=== PATIENT | male | born 1980 | race Caucasian/White ===

== ENCOUNTER 2019-02-14 14:01 | Inpatient (IN) | payer BC, OTHER ==
[~2019-02-14 14:01] MED LIST: BUPIVACAINE HCL/PF 0.5% (5 MG/ML) 30 ML VIAL IJ ONE
--- NOTE | 2019-02-14 14:13 | PDOC ---
Rapid Medical Evaluation Chief Complaint: Vomiting/Diarrhea Time Seen by Provider: 02/14/19 14:10 Medical Evaluation: Allergies Allergy/AdvReac Type Severity Reaction Status Date / Time codeine Allergy Swelling Verified 08/16/15 12:59 02/14/19 14:10 I performed a brief in-person evaluation of this patient. Briefly, this is a 38-year-old male w no signifcant PMH referred from [facility] for RLQ pain since Wednesday, worsening, associated w vomiting, diarrhea, and fever (TMax 100.4) Alert, oriented, some distress secondary to pain Afebrile (took Motrin this morning) RLQ tenderness w/ guarding and rebound. I have ordered the following: Labs including CBC, CMP, lipase, PT/INR, T&S NPO CTAP non-contrast Morphine for analgesia Empiric Zosyn Patient to proceed to the ED for further evaluation 02/14/19 14:13 Discharge Disposition - Diagnosis Right lower quadrant pain - Discharge Dispostion Condition at time of disposition: Stable - Referrals - Patient Instructions - Post Discharge Activity
[2019-02-14] MEDS ORDERED: PIPERACILLIN/TAZOB 4.5 GM 4.5 GM in DEXTROSE 5%-WATER 100 ML IVPB ONE (14:14)
[2019-02-14 14:42] LABS: BASO % 0.4 % (0-2.0); EOS % 1.1 % (0-4.5); HEMATOCRIT 46.5 % (35.4-49); HEMOGLOBIN 16.3 GM/dL (11.7-16.9); LYMPH % 8.4 % (8-40); MCH 31.7 pg (25.7-33.7); MEAN CELL VOLUME 90.5 fl (80-96); MEAN PLT VOLUME 7.6 fl (7.5-11.1); MONO % 8.8 % (3.8-10.2); NEUT % 81.3 % (42.8-82.8); PLATELET COUNT 323 K/MM3 (134-434); RBC 5.14 M/mm3 (4.00-5.60); RDW 12.5 % (11.9-15.9); WHITE BLOOD COUNT 18.7 K/mm3 (4.0-10.0)
[2019-02-14 15:12] LABS: ALBUMIN 3.6 g/dl (3.4-5.0); BILIRUBIN,TOTAL 0.8 mg/dL (0.2-1); CALCIUM 9.2 mg/dL (8.5-10.1); CREATININE 1.2 mg/dL (0.55-1.3); POTASSIUM 4.4 mmol/L (3.5-5.1); TOT PROT 7.9 g/dl (6.4-8.2)
--- NOTE | 2019-02-14 15:30 | PDOC ---
Attending Attestation - Resident Resident Name: Tor Ballard (s) - ED Attending Attestation I have performed the following: I have examined & evaluated the patient, The case was reviewed & discussed with the resident, I agree w/resident's findings & plan, Exceptions are as noted - HPI HPI: 02/14/19 15:28 38 M with no PMH presents to ED with RLQ pain x 4 days. Pt states that the pain is constant. Associated with vomiting and diarrhea. He also reports fever with Tmax 100.4. Denies any previous surgical history. Denies scrotal pain. Denies dysuria/flank pain. Denies CP/SOB. - Physicial Exam PE: 02/14/19 15:29 "GENERAL: Awake, alert, and fully oriented, in no acute distress. HEAD: No signs of trauma EYES: PERRLA, EOMI, sclera anicteric, conjunctiva clear ENT: Auricles normal inspection, hearing grossly normal, nares patent, oropharynx clear without exudates. Moist mucosa NECK: Nontender, no stepoffs, Normal ROM, supple, no lymphadenopathy, JVD, or masses LUNGS: Breath sounds equal, clear to auscultation bilaterally. No wheezes, and no crackles HEART: Regular rate and rhythm, normal S1 and S2, no murmurs, rubs or gallops ABDOMEN: + RLQ TTP, + guarding and rebound EXTREMITIES: Normal range of motion, no edema. No clubbing or cyanosis. No cords, erythema, or tenderness NEUROLOGICAL: Cranial nerves II through XII intact. 5/5 strength and sensation in all extremities, Normal speech, normal gait, normal cerebellar function SKIN: Warm, Dry, normal turgor, no rashes or lesions noted. - Critical Care Time Total Critical Care Time: 60 Critical Care Statement: The care of this patient involved high complexity decision making to prevent further life threatening deterioration of the patient 's condition and/or to evaluate & treat vital organ system(s) failure or risk of failure. - Medical Decision Making 02/14/19 15:29 38 M with RLQ pain, vomiting, fever, with peritoneal signs on exam. Suspicious for acute appendicitis. - Labs - CTAP - IVF, pain control 02/14/19 15:30 CT shows perf'ed appendicitis without abscess Surgery consulted
--- NOTE | 2019-02-14 15:32 | PDOC ---
History of Present Illness - General Chief Complaint: Vomiting/Diarrhea Stated Complaint: LOWER ABD PAIN Time Seen by Provider: 02/14/19 14:10 - History of Present Illness Initial Comments: 02/14/19 15:21 Mr. Huerta is a 38 yo male w/ no significant pmh who presents for evaluation of 3 day history of RLQ abdominal pain w/ fever, nausea, diarrhea, and vomiting. Patient reports he felt unwell on Wednesday (02/11) however thought it was a stomach bug. Patient became concerned when he did not feel well enough to go to work and went to urgent care for evaluation today. Patient was told to go to ER based on laboratory evaluation. Denies any other symptoms at this time. Last meal yesterday accompanied by last vomiting episode. The patient denies chest pain, shortness of breath, headache and dizziness. Denies chills and constipation. Denies dysuria, frequency, urgency and hematuria. Past History - Past Medical History Allergies/Adverse Reactions: Allergies Allergy/AdvReac Type Severity Reaction Status Date / Time codeine Allergy Swelling Verified 08/16/15 12:59 Home Medications: Ambulatory Orders NK [No Known Home Medication] 02/14/19 - Psycho Social/Smoking Cessation Hx Smoking History: Never smoked Have you smoked in the past 12 months: No Number of Cigarettes Smoked Daily: 30 Information on smoking cessation initiated: No Hx Alcohol Use: No Drug/Substance Use Hx: No Substance Use Type: None Review of Systems - Review of Systems Comments:: 02/14/19 15:40 GENERAL/CONSTITUTIONAL: +Fever at home as described. No chills. No weakness. HEAD, EYES, EARS, NOSE AND THROAT: No change in vision. No ear pain or discharge. No sore throat. CARDIOVASCULAR: No chest pain or shortness of breath RESPIRATORY: No cough, wheezing, or hemoptysis. GASTROINTESTINAL: +Abd pain w/ N/V/D as described. No constipation. GENITOURINARY: No dysuria, frequency, or change in urination. MUSCULOSKELETAL: No joint or muscle swelling or pain. No neck or back pain. SKIN: No rash NEUROLOGIC: No headache, vertigo, loss of consciousness, or change in strength/ sensation. ENDOCRINE: No increased thirst. No abnormal weight change HEMATOLOGIC/LYMPHATIC: No anemia, easy bleeding, or history of blood clots. ALLERGIC/IMMUNOLOGIC: No hives or skin allergy. *Physical Exam - Vital Signs Last Vital Signs Temp Pulse Resp BP Pulse Ox 98.7 F 114 H 18 134/79 99 02/14/19 14:08 02/14/19 14:08 02/14/19 14:08 02/14/19 14:08 02/14/19 14:08 - Physical Exam Comments: 02/14/19 15:41 GENERAL: Awake, alert, and fully oriented, in no acute distress HEAD: No signs of trauma, normocephalic, atraumatic EYES: PERRLA, EOMI, sclera anicteric, conjunctiva clear ENT: Auricles normal inspection, hearing grossly normal, nares patent, oropharynx clear without exudates. Moist mucosa NECK: Normal ROM, supple, no lymphadenopathy, JVD, or masses LUNGS: No distress, speaks full sentences, clear to auscultation bilaterally HEART: Regular rate and rhythm, normal S1 and S2, no murmurs, rubs or gallops, peripheral pulses normal and equal bilaterally. ABDOMEN: +Diffuse abd TTP w/ guarding.. Normoactive bowel sounds. No masses EXTREMITIES: Normal inspection, Normal range of motion, no edema. No clubbing or cyanosis. NEUROLOGICAL: Cranial nerves II through XII grossly intact. Normal speech, normal gait, no focal sensorimotor deficits SKIN: Warm, Dry, normal turgor, no rashes or lesions noted. ED Treatment Course - LABORATORY CBC & Chemistry Diagram: 02/14/19 14:13 02/14/19 14:13 - ADDITIONAL ORDERS Additional order review: Laboratory Results 02/14/19 14:13 Sodium 131 L Potassium 4.4 Chloride 99 Carbon Dioxide 25 Anion Gap 7 L BUN 15.0 Creatinine 1.2 Est GFR (CKD-EPI)AfAm 89.00 Est GFR (CKD-EPI)NonAf 76.79 Random Glucose 125 H Calcium 9.2 Total Bilirubin 0.8 AST 33 ALT 83 H Alkaline Phosphatase 72 Total Protein 7.9 Albumin 3.6 Lipase 107 02/14/19 14:13 RBC 5.14 MCV 90.5 MCHC 35.0 RDW 12.5 MPV 7.6 Neutrophils % 81.3 Lymphocytes % 8.4 Monocytes % 8.8 Eosinophils % 1.1 Basophils % 0.4 Medical Decision Making - Medical Decision Making 02/14/19 15:42 Mr. Huerta is a 38 yo male w/ pmh as described who presents w/ abdominal pain. Patient evaluated w/ CTAP by RME and found to have perforated appendicitis. Patient labs sent for pre-op and patient will be admitted for further care. ABX started. Patient given tylenol for pain control at this point as he has had throat swelling 2/2 codeine in the past. 02/14/19 16:40 Patient discussed with surgery who will take to OR. Patient admitted to hospitalist for further care. 02/14/19 16:52 EKG Normal sinus rhythm. Patient en route to OR. Discharge - Discharge Information Problems reviewed: Yes Clinical Impression/Diagnosis: Appendicitis with perforation Condition: Stable - Admission Yes - Follow up/Referral - Patient Discharge Instructions - Post Discharge Activity
[2019-02-14] MEDS ORDERED: morphine SULFATE 4 MG/ML VIAL ONE (15:37)
[2019-02-14] MEDS ORDERED: PIPERACILLIN/TAZOB 4.5 GM 4.5 GM/100 ML BAG IVPB ONE ×2 (15:38→15:39)
[2019-02-14] MEDS ORDERED: ONDANSETRON 4 MG/2 ML VIAL ONE (15:38)
[2019-02-14] MEDS ORDERED: ACETAMINOPHEN 1000 MG/100 ML VIAL (NON FORMULARY) IVPB ONE (15:40)
[2019-02-14] MEDS ORDERED: SODIUM CHLORIDE 1,000 ML IV STA (15:40)
[2019-02-14] MEDS ORDERED: ACETAMINOPHEN INJECTION 100 ML IVPB ONE (15:40)
[2019-02-14] MEDS ORDERED: ONDANSETRON 4 MG/2 ML VIAL IVPUSH ONE (15:40)
[2019-02-14 16:20] LABS: INR 1.22 (0.83-1.09); PROTHROMBIN TIME (PATIENT) 14.4 SEC (9.7-13.0)
[2019-02-14 16:22] LABS: ACTIVATED PTT 30.2 SECONDS (25.2-36.5)
--- NOTE | 2019-02-14 16:39 | HP ---
CHIEF COMPLAINT: abdominal pain PCP: none HISTORY OF PRESENT ILLNESS: Patient is a 38 y/o male with no medical history who presents for abdominal pain. The pain began on Wednesday. He has never had pain like this in the past. It did not get better. he as feeling nauseous and a had a few episodes of vomiting. Last ate last night. Denies fever, chills, headache, or chest pain. ER course was notable for: (1) (2) (3) Recent Travel: PAST MEDICAL HISTORY: none PAST SURGICAL HISTORY: teeth work family hx: none Social History: Smokin pack a day Alcohol: occasionally Drugs: denies Allergies codeine Allergy (Verified 08/16/15 12:59) Swelling HOME MEDICATIONS: Home Medications Medication Instructions Recorded NK [No Known Home Medication] 02/14/19 REVIEW OF SYSTEMS CONSTITUTIONAL: Absent: fever, chills, diaphoresis, generalized weakness, malaise, loss of appetite, weight change HEENT: Absent: rhinorrhea, nasal congestion, throat pain, throat swelling, difficulty swallowing, mouth swelling, ear pain, eye pain, visual changes CARDIOVASCULAR: Absent: chest pain, syncope, palpitations, irregular heart rate, lightheadedness , peripheral edema RESPIRATORY: Absent: cough, shortness of breath, dyspnea with exertion, orthopnea, wheezing, stridor, hemoptysis GASTROINTESTINAL:abdominal pain, nausea, vomiting, diarrhea, Absent: abdominal distension, constipation, melena, hematochezia GENITOURINARY: Absent: dysuria, frequency, urgency, hesitancy, hematuria, flank pain, genital pain MUSCULOSKELETAL: Absent: myalgia, arthralgia, joint swelling, back pain, neck pain SKIN: Absent: rash, itching, pallor HEMATOLOGIC/IMMUNOLOGIC: Absent: easy bleeding, easy bruising, lymphadenopathy, frequent infections ENDOCRINE: Absent: unexplained weight gain, unexplained weight loss, heat intolerance, cold intolerance NEUROLOGIC: Absent: headache, focal weakness or paresthesias, dizziness, unsteady gait, seizure, mental status changes, bladder or bowel incontinence PSYCHIATRIC: Absent: anxiety, depression, suicidal or homicidal ideation, hallucinations. PHYSICAL EXAMINATION Vital Signs - 24 hr 02/14/19 14:08 Temperature 98.7 F Pulse Rate 114 H Respiratory 18 Rate Blood Pressure 134/79 O2 Sat by Pulse 99 Oximetry (%) GENERAL: Awake, alert, and fully oriented, in no acute distress. HEAD: Normal with no signs of trauma. EYES: Pupils equal, round and reactive to light, extraocular movements intact, EARS, NOSE, THROAT: Moist mucous membranes. LUNGS: Breath sounds equal, clear to auscultation bilaterally. No wheezes, and no crackles. No accessory muscle use. HEART: Regular rate and rhythm, normal S1 and S2 without murmur, rub or gallop. ABDOMEN: tenderness to palpation in RLQ LOWER EXTREMITIES: 2+ pulses, warm, well-perfused. No calf tenderness. No peripheral edema. SKIN: Warm, dry, normal turgor, no rashes or lesions noted, normal capillary refill. CBC, BMP 02/14/19 14:13 02/14/19 14:13 ASSESSMENT/PLAN: patient is a 38 y/o male with no history who presents with acute perforated appendicitis. #Acute perforated appendicitis - to go to surgery today with Dr. Eastman - CT Abd/Pelvis: acute perforated appendcitis, no abcess - zosyn q6h for post surgical coverage - ID consult with Eduard - pain management per anesthesia - incentive spirometer q1h - O2 as needed to keep saturation above 90% #nicotine dependence - patient denied nicotine patch #DVT ppx - SCD's FEN - NPO - LR @100 Dispo: monitor patient on med surg Visit type - Emergency Visit Emergency Visit: Yes ED Registration Date: 02/14/19 Care time: The patient presented to the Emergency Department on the above date and was hospitalized for further evaluation of their emergent condition. - New Patient This patient is new to me today: Yes Date on this admission: 02/17/19 - Critical Care Critical Care patient: No ATTENDING PHYSICIAN STATEMENT I saw and evaluated the patient. I reviewed the resident's note and discussed the case with the resident. I agree with the resident's findings and plan as documented. SUBJECTIVE: OBJECTIVE: ASSESSMENT AND PLAN:
--- NOTE | 2019-02-14 17:12 | CONSULT ---
- Consultation REQUESTING PROVIDER: CONSULT REQUEST: We have been asked to surgically evaluate this patient for abdominal pain. PCP: HISTORY OF PRESENT ILLNESS: The patient is a 38 yo male who presents to the ER with complaints of diarrhea, emesis and abdominal pain since Wednesday morning. He had one episode of non-bloody diarrhea today. No further vomiting since yesterday. Fever and chills. No dysuria. PMHx: Denies PSHx: No surgical history Home Medications Medication Instructions Recorded NK [No Known Home Medication] 02/14/19 Allergies Allergy/AdvReac Type Severity Reaction Status Date / Time codeine Allergy Swelling Verified 08/16/15 12:59 REVIEW OF SYSTEMS: CONSTITUTIONAL: Present: fever, chills CARDIOVASCULAR: Absent: chest pain, palpitations. RESPIRATORY: Absent: cough, shortness of breath. GASTROINTESTINAL: Absent: abdominal pain, nausea, vomiting, diarrhea GENITOURINARY: Absent: dysuria, hematuria MUSCULOSKELETAL: Absent: joint swelling, back pain, neck pain HEMATOLOGIC/IMMUNOLOGIC: Absent: easy bleeding, easy bruising PHYSICAL EXAM: GENERAL: Awake, alert, and fully oriented, in no acute distress. LUNGS: Clear to auscultation bilat anteriorly. HEART: Mild tachycardia and regular rhythm. ABDOMEN: Soft, tender to the RLE, guarding, no rebound, no masses. NEUROLOGICAL: Normal speech, gait not observed. PSYCH: Cooperative. Good eye contact. Appropriate mood and affect. Vital Signs Temperature 98.7 F 02/14/19 14:08 Pulse Rate 114 H 02/14/19 14:08 Respiratory Rate 18 02/14/19 14:08 Blood Pressure 134/79 02/14/19 14:08 O2 Sat by Pulse Oximetry (%) 99 02/14/19 14:08 Lab Results WBC 18.7 K/mm3 (4.0-10.0) H 02/14/19 14:13 RBC 5.14 M/mm3 (4.00-5.60) 02/14/19 14:13 Hgb 16.3 GM/dL (11.7-16.9) 02/14/19 14:13 Hct 46.5 % (35.4-49) 02/14/19 14:13 MCV 90.5 fl (80-96) 02/14/19 14:13 MCHC 35.0 g/dl (32.0-35.9) 02/14/19 14:13 RDW 12.5 % (11.9-15.9) 02/14/19 14:13 Plt Count 323 K/MM3 (134-434) 02/14/19 14:13 Sodium 131 mmol/L (136-145) L 02/14/19 14:13 Potassium 4.4 mmol/L (3.5-5.1) 02/14/19 14:13 Chloride 99 mmol/L (98-107) 02/14/19 14:13 Carbon Dioxide 25 mmol/L (21-32) 02/14/19 14:13 Anion Gap 7 MMOL/L (8-16) L 02/14/19 14:13 BUN 15.0 mg/dL (7-18) 02/14/19 14:13 Creatinine 1.2 mg/dL (0.55-1.3) 02/14/19 14:13 Random Glucose 125 mg/dL (74-106) H 02/14/19 14:13 Calcium 9.2 mg/dL (8.5-10.1) 02/14/19 14:13 INR 1.22 (0.83-1.09) H 02/14/19 15:31 CT scan: acute appendicits with perforation. No collection. A/p: 38 yo male with acute/perforated appendicits. No collection/abscess. Spoke with Dr Eastman and plan for the OR today. Laparoscopic appendectomy Npo/IV hydration Pt received IV Zosyn at 1530 Visit type - Case Type Case Type: ED Admission - Emergency Emergency Visit: Yes Care time: The patient presented to the Emergency Department on the above date and was hospitalized for further evaluation of their emergent condition. - New patient This patient is new to me today: Yes Date on this admission: 02/14/19
[2019-02-14] MEDS ORDERED: LACTATED RINGERS SOLUTION 1,000 ML/1,000 ML INFUS.BAG IV SCH (18:15)
[2019-02-14] MEDS ORDERED: BUPIVACAINE HCL/PF 0.5% (5 MG/ML) 30 ML VIAL IJ ONE (18:29)
[2019-02-14] MEDS ORDERED: KETOROLAC TROMETHAMINE 30 MG/1 ML VIAL IVPUSH PRN (18:41)
[2019-02-14] MEDS ORDERED: LACTATED RINGERS SOLUTION 1,000 ML IV SCH (18:45)
--- NOTE | 2019-02-14 18:50 | OP ---
Operative Note - Note: Operative Date: 02/14/19 Pre-Operative Diagnosis: acute appendicitis-perforated Operation: laparosopic appendectomy for perforation Surgeon: Carlos Eastman Salesperson Women'S Dresses: Shamika Rogers Specimens Removed: appendix Estimated Blood Loss (mls): 40 Drains, Volume Out (mls): 250 (roth) Fluid Volume Replaced (mls): 1,000 Operative Report Dictated: Yes
--- NOTE | 2019-02-14 18:51 | SURG ---
Surgery Terminal Makeup Operator Note Terminal Makeup Operator: Shamika Rogers PA-C Date of Service: 02/14/19 Diagnosis: acute perforated appendicitis Procedure: laparosopic appendectomy I was present for the entirety of the operative procedure. For further detail, please refer to operative report. Visit type - Case Type Case Type: ED Admission - Emergency Emergency Visit: Yes Care time: The patient presented to the Emergency Department on the above date and was hospitalized for further evaluation of their emergent condition. - New patient This patient is new to me today: No
[2019-02-14 19:01] LABS: PLATELET ESTIMATE ADEQUATE
[2019-02-14] MEDS ORDERED: PROMETHAZINE HCL 25 MG/1 ML VIAL IVPUSH PRN (19:15)
[2019-02-14] MEDS ORDERED: ONDANSETRON 4 MG/2 ML VIAL IVPUSH PRN (19:15)
[2019-02-14] MEDS: LACTATED RINGERS SOLUTION 1,000 ML IV SCH (20:50)
[2019-02-14] MEDS: PIPERACILLIN/TAZOB 3.375 GM 3.375 GM in DEXTROSE 5%-WATER - 50 ML IVPB SCH (20:55)
[2019-02-14] MEDS ORDERED: PIPERACILLIN/TAZOB 3.375 GM 3.375 GM in DEXTROSE 5%-WATER - 50 ML IVPB SCH (21:00)
[2019-02-14] MEDS: morphine SULFATE 4 MG/ML VIAL IVPUSH PRN (21:23)
[2019-02-14] MEDS ORDERED: PIPERACILLIN/TAZOBACTAM 3.375 GM VIAL IVPB ONE (21:29)
[2019-02-14] MEDS ORDERED: DEXTROSE 5%-WATER - 50 ML IVPB ONE (21:29)
[2019-02-14] MEDS: ACETAMINOPHEN 1000 MG/100 ML VIAL (NON FORMULARY) IVPB SCH (22:54)
[2019-02-14] MEDS: LACTATED RINGERS SOLUTION 1,000 ML/1,000 ML INFUS.BAG IV SCH (22:55)
[2019-02-15] MEDS ORDERED: PIPERACILLIN/TAZOBACTAM 3.375 GM VIAL IVPB ONE ×3 (01:13→18:02)
[2019-02-15] MEDS ORDERED: DEXTROSE 5%-WATER - 50 ML IVPB ONE ×3 (01:14→18:03)
[2019-02-15] MEDS: PIPERACILLIN/TAZOB 3.375 GM 3.375 GM in DEXTROSE 5%-WATER - 50 ML IVPB SCH ×3 (01:21→18:38)
[2019-02-15] MEDS: morphine SULFATE 4 MG/ML VIAL IVPUSH PRN ×4 (01:25→18:23)
[2019-02-15 02:42] VITALS: BMI 38.4
[2019-02-15] MEDS: ACETAMINOPHEN 1000 MG/100 ML VIAL (NON FORMULARY) IVPB SCH ×2 (03:50→09:36)
[2019-02-15] MEDS: KETOROLAC TROMETHAMINE 30 MG/1 ML VIAL IVPUSH PRN ×2 (06:08→18:51)
[2019-02-15] MEDS: LACTATED RINGERS SOLUTION 1,000 ML/1,000 ML INFUS.BAG IV SCH (06:48)
[2019-02-15 08:25] LABS: BASO % 0.1 % (0-2.0); HEMATOCRIT 42.1 % (35.4-49); HEMOGLOBIN 14.8 GM/dL (11.7-16.9); LYMPH % 4.8 % (8-40); MCH 31.9 pg (25.7-33.7); MCHC 35.1 g/dl (32.0-35.9); MEAN CELL VOLUME 91.1 fl (80-96); MEAN PLT VOLUME 7.7 fl (7.5-11.1); MONO % 9.3 % (3.8-10.2); NEUT % 85.8 % (42.8-82.8); PLATELET COUNT 336 K/MM3 (134-434); RBC 4.62 M/mm3 (4.00-5.60); WHITE BLOOD COUNT 15.6 K/mm3 (4.0-10.0)
--- NOTE | 2019-02-15 08:27 | PN ---
Progress Note (short form) - Note Progress Note: POD #1 laparoscopic appendectomy. Patient c/o RLQ pain. He denies any CP, SOB, Fever, chills, N/V. He is hungry and would like to eat. Vital Signs Temp 99.5 F 02/15/19 06:43 Pulse 106 H 02/15/19 06:43 Resp 20 02/15/19 06:43 BP 120/74 02/15/19 06:43 Pulse Ox 98 02/14/19 21:00 Intake & Output 02/14/19 02/14/19 02/15/19 11:59 23:59 11:59 Intake Total 1650 1150 Output Total 360 425 Balance 1290 725 Weight 238 lb Intake: IV 1600 1000 LACTATED RINGERS SOLUTION 200 1000 1,000 ml In 1,000 ml @ 100 mls/hr IV ASDIR RYAN Rx#:[id number] IVPB 50 150 Oral 0 Output: Drainage 110 25 Left Abdomen 10 25 Urine 250 400 Void 0 400 Other: Voiding Method Urinal # Unmeasured Voids Void 2 Bowel Movement No Height 5 ft 6 in Body Mass Index (BMI) 38.4 Weight Measurement Method Built in [facility] Weight Measurement Method Est/Stated by Patient CBC, BMP 02/15/19 07:20 02/15/19 07:20 PE: A&Ox3, NAD Unlabored resp on RA ABD: obese, mildly distended, with diffuse TTP, focal TTP over RLQ appropriate to status. Drain at LLQ in good position with SS d/c. dressing c/d/i with surrounding tissue intact and no tracking erythema. B/L LE compartments, soft, supple and non-tender to palpation with + DP pulses. Problem List - Problems (1) Appendicitis with perforation Assessment/Plan: POD #1 Laparoscopic appendectomy with micro perf, patient doing well. -Clear diet -OOB as tolerated up to chair for meals -maintain LAURA drain -IV ABX per ID -trend labs -d/c planning for home possibly later this week. Evaluation and plan discussed with Dr Eastman. Code(s): K35.32 - ACUTE APPENDICITIS WITH PERF AND LOC PERITONITIS, W/O ABSCS
--- NOTE | 2019-02-15 08:33 | PN ---
Progress Note (short form) - Note Progress Note: 38 yo M no significant PMH s/p laparoscopic appendectomy under GA. Patient c/o pain. Receiving analgesics per order set. Vital Signs Temperature 99.5 F 02/15/19 06:43 Pulse Rate 106 H 02/15/19 06:43 Respiratory Rate 20 02/15/19 06:43 Blood Pressure 120/74 02/15/19 06:43 O2 Sat by Pulse Oximetry (%) 98 02/14/19 21:00 Laboratory Last Values WBC 18.7 K/mm3 (4.0-10.0) H 02/14/19 14:13 RBC 5.14 M/mm3 (4.00-5.60) 02/14/19 14:13 Hgb 16.3 GM/dL (11.7-16.9) 02/14/19 14:13 Hct 46.5 % (35.4-49) 02/14/19 14:13 MCV 90.5 fl (80-96) 02/14/19 14:13 MCH 31.7 pg (25.7-33.7) 02/14/19 14:13 MCHC 35.0 g/dl (32.0-35.9) 02/14/19 14:13 RDW 12.5 % (11.9-15.9) 02/14/19 14:13 Plt Count 323 K/MM3 (134-434) 02/14/19 14:13 MPV 7.6 fl (7.5-11.1) 02/14/19 14:13 Absolute Neuts (auto) 15.2 K/mm3 (1.5-8.0) H 02/14/19 14:13 Neutrophils % 81.3 % (42.8-82.8) 02/14/19 14:13 Neutrophils % (Manual) 85.7 % (42.8-82.8) H 02/14/19 14:13 Band Neutrophils % 0.0 % 02/14/19 14:13 Lymphocytes % 8.4 % (8-40) 02/14/19 14:13 Lymphocytes % (Manual) 1.0 % (8-40) L 02/14/19 14:13 Monocytes % 8.8 % (3.8-10.2) 02/14/19 14:13 Monocytes % (Manual) 5 % (3.8-10.2) 02/14/19 14:13 Eosinophils % 1.1 % (0-4.5) 02/14/19 14:13 Eosinophils % (Manual) 2.1 % (0-4.5) 02/14/19 14:13 Basophils % 0.4 % (0-2.0) 02/14/19 14:13 Basophils % (Manual) 0.0 % (0-2.0) 02/14/19 14:13 Myelocytes % (Man) 0 % (0-2) 02/14/19 14:13 Promyelocytes % (Man) 0 % (0-2) 02/14/19 14:13 Blast Cells % (Manual) 0 % (0-0) 02/14/19 14:13 Nucleated RBC % 0 % (0-0) 02/14/19 14:13 Metamyelocytes 0 % (0-2) 02/14/19 14:13 Platelet Estimate Adequate 02/14/19 14:13 PT with INR 14.40 SEC (9.7-13.0) H 02/14/19 15:31 INR 1.22 (0.83-1.09) H 02/14/19 15:31 PTT (Actin FS) 30.2 SECONDS (25.2-36.5) 02/14/19 15:31 Sodium 131 mmol/L (136-145) L 02/14/19 14:13 Potassium 4.4 mmol/L (3.5-5.1) 02/14/19 14:13 Chloride 99 mmol/L (98-107) 02/14/19 14:13 Carbon Dioxide 25 mmol/L (21-32) 02/14/19 14:13 Anion Gap 7 MMOL/L (8-16) L 02/14/19 14:13 BUN 15.0 mg/dL (7-18) 02/14/19 14:13 Creatinine 1.2 mg/dL (0.55-1.3) 02/14/19 14:13 Est GFR (CKD-EPI)AfAm 89.00 02/14/19 14:13 Est GFR (CKD-EPI)NonAf 76.79 02/14/19 14:13 Random Glucose 125 mg/dL (74-106) H 02/14/19 14:13 Calcium 9.2 mg/dL (8.5-10.1) 02/14/19 14:13 Total Bilirubin 0.8 mg/dL (0.2-1) 02/14/19 14:13 AST 33 U/L (15-37) 02/14/19 14:13 ALT 83 U/L (13-61) H 02/14/19 14:13 Alkaline Phosphatase 72 U/L (45-117) 02/14/19 14:13 Total Protein 7.9 g/dl (6.4-8.2) 02/14/19 14:13 Albumin 3.6 g/dl (3.4-5.0) 02/14/19 14:13 Lipase 107 U/L (73-393) 02/14/19 14:13 Blood Type B POSITIVE 02/14/19 21:20 Antibody Screen Positive H 02/14/19 14:13 Prewarmed Antibody Srcn Negative 02/14/19 14:13 Antibody Identification Cold agg 02/14/19 14:13 Antigen Identification No Result Required. 02/14/19 14:13 - No complications with GA -Call with questions.
[2019-02-15 08:37] LABS: BLOOD UREA NITROGEN 15.3 mg/dL (7-18); CALCIUM 8.4 mg/dL (8.5-10.1); CREATININE 1.2 mg/dL (0.55-1.3); POTASSIUM 4.6 mmol/L (3.5-5.1)
--- NOTE | 2019-02-15 09:22 | PN ---
Progress Note, Physician Chief Complaint: s/p lap appy under general anesthesia History of Present Illness: post op day one - Current Medication List Current Medications: Active Medications Acetaminophen (Ofirmev Injection -) 1,000 mg IVPB Q6H RYAN Stop: 02/15/19 10:01 Last Admin: 02/15/19 03:50 Dose: 1,000 mg Fentanyl (Sublimaze Injection -) 50 mcg IVPUSH [id number] PRN PRN Reason: PAIN-PACU ORDER X 4 DOSES ONLY Lactated Ringer's (Lactated Ringers Solution) 1,000 mls @ 125 mls/hr IV ASDIR RYAN Last Admin: 02/14/19 20:50 Dose: Not Given Piperacillin Sod/Tazobactam (Sod 3.375 gm/ Dextrose) 50 mls @ 100 mls/hr IVPB Q8H-IV RYAN; Protocol Last Admin: 02/15/19 01:21 Dose: 100 mls/hr Lactated Ringer's (Lactated Ringers Solution) 1,000 ml in 1,000 mls @ 100 mls/ hr IV ASDIR RYAN Last Admin: 02/15/19 06:48 Dose: 100 mls/hr Ketorolac Tromethamine (Toradol Injection -) 30 mg IVPUSH Q6H PRN PRN Reason: PAIN LEVEL 1-5 Stop: 02/20/19 00:14 Last Admin: 02/15/19 06:08 Dose: 30 mg Morphine Sulfate (Morphine Sulfate) 4 mg IVPUSH Q4H PRN PRN Reason: PAIN LEVEL 6-10 Last Admin: 02/15/19 01:25 Dose: 4 mg Ondansetron HCl (Zofran Injection) 4 mg IVPUSH Q6H PRN PRN Reason: NAUSEA AND/OR VOMITING Promethazine HCl (Phenergan Injection -) 12.5 mg IVPUSH Q6H PRN PRN Reason: NAUSEA-FOR RESCUE AFTER 15 MIN - Objective Vital Signs: Vital Signs Temperature 99.5 F 02/15/19 06:43 Pulse Rate 106 H 02/15/19 06:43 Respiratory Rate 20 02/15/19 06:43 Blood Pressure 120/74 02/15/19 06:43 O2 Sat by Pulse Oximetry (%) 98 02/14/19 21:00 Constitutional: Yes: Well Nourished Cardiovascular: Yes: WNL Respiratory: Yes: WNL Gastrointestinal: Yes: WNL Labs: CBC, BMP 02/15/19 07:20 02/15/19 07:20 INR, PTT INR 1.22 (0.83-1.09) H 02/14/19 15:31 Assessment/Plan Patient complaining about pain, helped by morphine, tolerating clears, no adverse anesthetic complications. Suggest converting IV morphine to po analgesics, otherwise will sign off care at this time.
--- NOTE | 2019-02-15 12:04 | CON.ID ---
Consult Consult Specialty:: infectious diseases Referred by:: Reason for Consultation:: perforated appendix - History of Present Illness Chief Complaint: abd pain History of Present Illness: 38 y/o male with no medical history admitted with abdominal pain. The pain began on Wednesday. He has never had pain like this in the past. It did not get better. he as feeling nauseous and a had a few episodes of vomiting. . Denies fever, chills, headache, or chest pain. patient was worked up found to have perforated appendix was taken to the operating room by surgery and underwent surgery currently post op with lot of pain - History Source History Provided By: Patient Limitations to Obtaining History: No Limitations - Alcohol/Substance Use Hx Alcohol Use: No - Smoking History Smoking history: Never smoked Have you smoked in the past 12 months: No Aproximately how many cigarettes per day: 30 Home Medications - Allergies Allergies/Adverse Reactions: Allergies Allergy/AdvReac Type Severity Reaction Status Date / Time codeine Allergy Swelling Verified 08/16/15 12:59 - Home Medications Home Medications: Ambulatory Orders NK [No Known Home Medication] 02/14/19 Review of Systems - Review of Systems Constitutional: reports: No Symptoms Eyes: reports: No Symptoms HENT: reports: No Symptoms Neck: reports: No Symptoms Cardiovascular: reports: No Symptoms Respiratory: reports: No Symptoms Gastrointestinal: reports: Abdominal Pain, Nausea, Vomiting Genitourinary: reports: No Symptoms Musculoskeletal: reports: No Symptoms Integumentary: reports: No Symptoms Neurological: reports: No Symptoms Endocrine: reports: No Symptoms Hematology/Lymphatic: reports: No Symptoms Psychiatric: reports: No Symptoms Physical Exam Vital Signs: Vital Signs Temperature 99.5 F 02/15/19 06:43 Pulse Rate 106 H 02/15/19 06:43 Respiratory Rate 20 02/15/19 06:43 Blood Pressure 120/74 02/15/19 06:43 O2 Sat by Pulse Oximetry (%) 98 02/14/19 21:00 Constitutional: Yes: Well Nourished, Calm, Mild Distress HENT: Yes: Atraumatic, Normocephalic Neck: Yes: Supple, Trachea Midline Cardiovascular: Yes: Regular Rate and Rhythm Respiratory: Yes: Regular, CTA Bilaterally Gastrointestinal: Yes: Distention, Tenderness, Other (absent bowel sounds) Musculoskeletal: Yes: WNL Extremities: Yes: WNL Neurological: Yes: Alert, Oriented Psychiatric: Yes: Alert, Oriented Labs: CBC, BMP 02/15/19 07:20 02/15/19 07:20 Imaging - Results Cat Scan: Report Reviewed, Image Reviewed Assessment/Plan patient is a 38 y/o male with no history who presents with acute perforated appendicitis. Acute perforated appendicitis nicotine dependence abd pain nausea plan continue zosyn await for cx report hydration rest as per surgery
--- NOTE | 2019-02-15 12:12 | EKG ---
Test Reason : Blood Pressure : / mmHG Vent. Rate : 098 BPM Atrial Rate : 098 BPM P-R Int : 134 ms QRS Dur : 082 ms QT Int : 338 ms P-R-T Axes : 049 033 033 degrees QTc Int : 431 ms NORMAL SINUS RHYTHM NORMAL ECG NO PREVIOUS ECGS AVAILABLE Confirmed by MELVIN BARKER, KILLIAN ([id number]) on 02/15/2019 12:12:35 PM Referred By: Confirmed By:KILLIAN CHARLES MD
--- NOTE | 2019-02-15 12:19 | OP ---
DATE OF OPERATION: 02/14/2019 PREOPERATIVE DIAGNOSIS: Acute perforated appendicitis. POSTOPERATIVE DIAGNOSIS: Acute perforated gangrenous appendicitis. PROCEDURE: Laparoscopic appendectomy. SURGEON: Carlos Eastman MD TRACK VEHICLE REPAIRER: Shamika Rogers PA-C ANESTHESIA: General. OPERATIVE FINDINGS: There was acute perforated gangrenous appendicitis with fecaliths present and a small localized collection in the right lower quadrant. The rest of the findings showed marked inflammation of the terminal ileum and surrounding mesentery, and the rest of the findings were unremarkable. PROCEDURE: The patient was placed on the operating table in supine position after the induction of general anesthesia and placement of a Wellington catheter. The patient's lower abdomen was prepped with ChloraPrep and draped in sterile fashion. A timeout was taken and pneumoperitoneum was established above the umbilicus using a Veress needle to an intraabdominal pressure of 15 mmHg. A 5-mm port was placed at the umbilicus as well as a left lower quadrant 5-mm port and suprapubic 12-mm port just to the left of the midline. Laparoscopy was carried out and the previously- noted findings were observed. Using blunt dissection, the small bowel was mobilized and the appendix identified. It was grasped and, using blunt dissection, mobilized. The mesoappendix was identified and serially divided close to the base of the appendix using the LigaSure device. Once completely mobilized, a purple load 45-mm Endo MARIA E stapling device was placed across the base of the appendix and fired. The appendix was then placed in an EndoCatch along with 2 fecaliths and brought up to the abdominal wall. Copious irrigation was carried out and some of the localized fluid that was present in the right lower quadrant was sent for culture and sensitivity to the microbiology lab. Further irrigation was carried out and then the appendiceal stump was examined and found to be hemostatic. Again, copious irrigation was carried out and then a 5-mm Landry-Bravo drain was placed at the base of the cecum and into the right lower quadrant collection and brought out to the 5-mm port site in the lateral abdominal wall. Hemostasis was again verified and then the pneumoperitoneum evacuated and all ports removed under laparoscopic vision without evidence of bleeding from the port sites. The defect at the 12-mm port site was closed with a single 0 Vicryl [id number] suture and all port sites were infiltrated with 0.5% Marcaine and the skin edges closed with 4-0 Monocryl continuous subcutaneous stitch. The drain was sutured to the skin with 2-0 silk suture and a BioPatch placed around it and covered with 4 x 4 dressings and connected to bulb self-suction. The remainder of the port sites were closed with Steri-Strips and Band-Aid dressings. The Wellington catheter was then removed and the patient aroused from general anesthesia and transferred to the post-anesthesia care unit in stable condition, awake and alert. Estimated blood loss 40 mL. Replacement: Crystalloid. Drains: One 10-mm Landry-Bravo. Specimen: Appendix to Pathology. I, Carlos Eastman, was physically present in the operating room from the time the patient was placed on the operating table until he was transferred to the post-anesthesia care unit in [place]. MD DIMPLE To/[id number] MTDD
--- NOTE | 2019-02-15 16:28 | PN ---
Physical Exam: SUBJECTIVE: Patient seen and examined. Endorses severe abdominal pain, worse than at presentation. Able to urinate. Did not eat his jello. Denies flatus, BM. OBJECTIVE: Vital Signs Period Temp Pulse Resp BP Sys/Curtis Pulse Ox Last 24 Hr 98.4 F-99.5 F 85-106 12-20 120-146/66-82 96-100 GENERAL: The patient is awake, alert, in mild distress. HEAD: Normal with no signs of trauma. EYES: extraocular movements intact, sclera anicteric, conjunctiva clear. ENT: Ears normal, nares patent, moist mucous membranes. NECK: Trachea midline, full range of motion, supple. LUNGS: Breath sounds equal, clear to auscultation bilaterally, no wheezes, no crackles, no accessory muscle use. HEART: Regular rate and rhythm, S1, S2 without murmur, rub or gallop. ABDOMEN: Soft, nondistended, normoactive bowel sounds, no guarding, no rebound. Tenderness to palpation to lower abd. LAURA in RLQ with serosanguinous fluid EXTREMITIES: 2+ pulses, warm, well-perfused, no edema. NEUROLOGICAL: Normal speech, gait not observed. SKIN: Warm, dry, normal turgor, no rashes or lesions noted Laboratory Results - last 24 hr 02/14/19 02/14/19 02/14/19 14:13 14:13 15:31 WBC RBC Hgb Hct MCV MCH MCHC RDW Plt Count MPV Absolute Neuts (auto) Neutrophils % Neutrophils % (Manual) 85.7 H Band Neutrophils % 0.0 Lymphocytes % Lymphocytes % (Manual) 1.0 L Monocytes % Monocytes % (Manual) 5 Eosinophils % Eosinophils % (Manual) 2.1 Basophils % Basophils % (Manual) 0.0 Myelocytes % (Man) 0 Promyelocytes % (Man) 0 Blast Cells % (Manual) 0 Nucleated RBC % Metamyelocytes 0 Platelet Estimate Adequate PT with INR 14.40 H INR 1.22 H PTT (Actin FS) 30.2 Sodium Potassium Chloride Carbon Dioxide Anion Gap BUN Creatinine Est GFR (CKD-EPI)AfAm Est GFR (CKD-EPI)NonAf Random Glucose Calcium Blood Type B POSITIVE Antibody Screen Positive H Prewarmed Antibody Srcn Negative Antibody Identification Cold agg Antigen Identification No Result Required. 10/08/19 10/09/19 10/09/19 21:20 07:20 07:20 WBC 15.6 H RBC 4.62 Hgb 14.8 Hct 42.1 MCV 91.1 MCH 31.9 MCHC 35.1 RDW 13.0 Plt Count 336 MPV 7.7 Absolute Neuts (auto) 13.4 H Neutrophils % 85.8 H Neutrophils % (Manual) Band Neutrophils % Lymphocytes % 4.8 L D Lymphocytes % (Manual) Monocytes % 9.3 Monocytes % (Manual) Eosinophils % 0.0 D Eosinophils % (Manual) Basophils % 0.1 Basophils % (Manual) Myelocytes % (Man) Promyelocytes % (Man) Blast Cells % (Manual) Nucleated RBC % 0 Metamyelocytes Platelet Estimate PT with INR INR PTT (Actin FS) Sodium 136 Potassium 4.6 Chloride 104 Carbon Dioxide 23 Anion Gap 9 BUN 15.3 Creatinine 1.2 Est GFR (CKD-EPI)AfAm 89.00 Est GFR (CKD-EPI)NonAf 76.79 Random Glucose 111 H Calcium 8.4 L Blood Type B POSITIVE Antibody Screen Prewarmed Antibody Srcn Antibody Identification Antigen Identification Active Medications Generic Name Dose Route Start Last Admin Trade Name Freq PRN Reason Stop Dose Admin Fentanyl 50 mcg 02/14/19 19:15 Sublimaze Injection - IVPUSH [id number] PRN PAIN-PACU ORDER X 4 DOSES ONLY Lactated Ringer's 1,000 mls @ 125 mls/hr 02/14/19 19:15 02/14/19 20:50 Lactated Ringers Solution IV Not Given ASDIR RYAN Piperacillin Sod/Tazobactam 50 mls @ 100 mls/hr 02/14/19 20:00 02/15/19 09:33 Sod 3.375 gm/ Dextrose IVPB 100 mls/hr Q8H-IV RYAN Administration Protocol Lactated Ringer's 1,000 ml in 1,000 mls @ 100 mls/hr 02/14/19 22:00 02/15/19 06:48 Lactated Ringers Solution IV 100 mls/hr ASDIR RYAN Administration Ketorolac Tromethamine 30 mg 02/15/19 00:15 02/15/19 06:08 Toradol Injection - IVPUSH 02/20/19 00:14 30 mg Q6H PRN Administration PAIN LEVEL 1-5 Morphine Sulfate 4 mg 02/14/19 18:53 02/15/19 14:21 Morphine Sulfate IVPUSH 4 mg Q4H PRN Administration PAIN LEVEL 6-10 Ondansetron HCl 4 mg 02/14/19 18:44 Zofran Injection IVPUSH Q6H PRN NAUSEA AND/OR VOMITING Promethazine HCl 12.5 mg 02/14/19 19:15 Phenergan Injection - IVPUSH Q6H PRN NAUSEA-FOR RESCUE AFTER 15 MIN Vital Signs Temp 98.5 F 02/15/19 15:00 Pulse 104 H 02/15/19 15:00 Resp 20 02/15/19 15:00 BP 140/78 02/15/19 15:00 Pulse Ox 98 02/15/19 09:00 Intake & Output 02/14/19 02/15/19 02/15/19 23:59 11:59 23:59 Intake Total 1650 1150 Output Total 360 425 Balance 1290 725 Weight 107.955 kg Intake: IV 1600 1000 LACTATED RINGERS SOLUTION 200 1000 1,000 ml In 1,000 ml @ 100 mls/hr IV ASDIR RYAN Rx#:[id number] IVPB 50 150 Oral 0 Output: Drainage 110 25 Left Abdomen 10 25 Urine 250 400 Void 0 400 Other: Voiding Method Urinal Urinal # Unmeasured Voids Void 2 Bowel Movement No Height 5 ft 6 in Body Mass Index (BMI) 38.4 Weight Measurement Method Built in [facility] Weight Measurement Method Est/Stated by Patient ASSESSMENT/PLAN: 37M w/ no significant PMH presenting with severe abdominal pain, CT A/P showing perforated appendicitis. POD#1 Laparoscopic Appendectomy w/ LAURA placement(Eastman , 02/14/19) #Acute perforated appendicitis > CT Abd/Pelvis(02/14/19): acute perforated appendcitis, no abscess - POD#1 lap appey w/ LAURA drain(Jaren, 02/14/19) - monitor LAURA output - zosyn q6h for post surgical coverage - ID consult with Eduard - pain management: morphine 4mg IV q4h PRN - nausea control: zofran PRN - incentive spirometer q1h #nicotine dependence - patient denied nicotine patch #DVT ppx - SCD's FEN - CLD Dispo: monitor patient on med surg Visit type - Emergency Visit Emergency Visit: No - New Patient This patient is new to me today: No - Critical Care Critical Care patient: No ATTENDING PHYSICIAN STATEMENT I saw and evaluated the patient. I reviewed the resident's note and discussed the case with the resident. I agree with the resident's findings and plan as documented. SUBJECTIVE: OBJECTIVE: ASSESSMENT AND PLAN:
--- NOTE | 2019-02-15 16:30 | PN ---
Teaching Attending Note Name of Resident: Adrian Dela Cruz ATTENDING PHYSICIAN STATEMENT I saw and evaluated the patient. I reviewed the resident's note and discussed the case with the resident. I agree with the resident's findings and plan as documented. SUBJECTIVE: Seen and examined at bedside, pain is better but still states is 5-6/10 OBJECTIVE: Vital Signs Period Temp Pulse Resp BP Sys/Curtis Pulse Ox Last 24 Hr 98.4 F-99.5 F 85-106 12-20 120-146/66-82 96-100 PHYSICAL EXAM: Gen: NAD CVS: s1s2, RRR, unlabored Lungs: CTA b/l, unlabored Abdomen: distended, post surgical incisions c/d/i, LAURA draining serosang fluid Ext: no c/c/e Current Medications Generic Name Dose Route Start Last Admin Trade Name Freq PRN Reason Stop Dose Admin Fentanyl 50 mcg 02/14/19 19:15 Sublimaze Injection - IVPUSH [id number] PRN PAIN-PACU ORDER X 4 DOSES ONLY Lactated Ringer's 1,000 mls @ 125 mls/hr 02/14/19 19:15 02/14/19 20:50 Lactated Ringers Solution IV Not Given ASDIR RYAN Piperacillin Sod/Tazobactam 50 mls @ 100 mls/hr 02/14/19 20:00 02/15/19 09:33 Sod 3.375 gm/ Dextrose IVPB 100 mls/hr Q8H-IV RYAN Administration Protocol Lactated Ringer's 1,000 ml in 1,000 mls @ 100 mls/hr 02/14/19 22:00 02/15/19 06:48 Lactated Ringers Solution IV 100 mls/hr ASDIR RYAN Administration Ketorolac Tromethamine 30 mg 02/15/19 00:15 02/15/19 06:08 Toradol Injection - IVPUSH 02/20/19 00:14 30 mg Q6H PRN Administration PAIN LEVEL 1-5 Morphine Sulfate 4 mg 02/14/19 18:53 02/15/19 14:21 Morphine Sulfate IVPUSH 4 mg Q4H PRN Administration PAIN LEVEL 6-10 Ondansetron HCl 4 mg 02/14/19 18:44 Zofran Injection IVPUSH Q6H PRN NAUSEA AND/OR VOMITING Promethazine HCl 12.5 mg 02/14/19 19:15 Phenergan Injection - IVPUSH Q6H PRN NAUSEA-FOR RESCUE AFTER 15 MIN Laboratory Results - last 24 hr 02/14/19 02/14/19 02/14/19 14:13 14:13 21:20 WBC RBC Hgb Hct MCV MCH MCHC RDW Plt Count MPV Absolute Neuts (auto) Neutrophils % Neutrophils % (Manual) 85.7 H Band Neutrophils % 0.0 Lymphocytes % Lymphocytes % (Manual) 1.0 L Monocytes % Monocytes % (Manual) 5 Eosinophils % Eosinophils % (Manual) 2.1 Basophils % Basophils % (Manual) 0.0 Myelocytes % (Man) 0 Promyelocytes % (Man) 0 Blast Cells % (Manual) 0 Nucleated RBC % Metamyelocytes 0 Platelet Estimate Adequate Sodium Potassium Chloride Carbon Dioxide Anion Gap BUN Creatinine Est GFR (CKD-EPI)AfAm Est GFR (CKD-EPI)NonAf Random Glucose Calcium Blood Type B POSITIVE B POSITIVE Antibody Screen Positive H Prewarmed Antibody Srcn Negative Antibody Identification Cold agg Antigen Identification No Result Required. 02/15/19 02/15/19 07:20 07:20 WBC 15.6 H RBC 4.62 Hgb 14.8 Hct 42.1 MCV 91.1 MCH 31.9 MCHC 35.1 RDW 13.0 Plt Count 336 MPV 7.7 Absolute Neuts (auto) 13.4 H Neutrophils % 85.8 H Neutrophils % (Manual) Band Neutrophils % Lymphocytes % 4.8 L D Lymphocytes % (Manual) Monocytes % 9.3 Monocytes % (Manual) Eosinophils % 0.0 D Eosinophils % (Manual) Basophils % 0.1 Basophils % (Manual) Myelocytes % (Man) Promyelocytes % (Man) Blast Cells % (Manual) Nucleated RBC % 0 Metamyelocytes Platelet Estimate Sodium 136 Potassium 4.6 Chloride 104 Carbon Dioxide 23 Anion Gap 9 BUN 15.3 Creatinine 1.2 Est GFR (CKD-EPI)AfAm 89.00 Est GFR (CKD-EPI)NonAf 76.79 Random Glucose 111 H Calcium 8.4 L Blood Type Antibody Screen Prewarmed Antibody Srcn Antibody Identification Antigen Identification Microbiology 02/14/19 19:17 Gram Stain - Final Peritoneal Fluid ASSESSMENT: Acute perforated appendicitis PLAN: -POD #2 lap appendectomy -LAURA drain mngmt per surgery -follow-up cultures -maintain on zosyn -pain control -bowel regimen -incentive spirometer encouraged -ID and surgery f/u appreciated
[2019-02-15] MEDS: ONDANSETRON 4 MG/2 ML VIAL IVPUSH PRN (18:24)
[2019-02-15] MEDS ORDERED: ACETAMINOPHEN 325 MG TABLET (FP) PO PRN (18:24)
[2019-02-15] MEDS: LACTATED RINGERS SOLUTION 1,000 ML IV SCH (18:25)
[2019-02-15] MEDS ORDERED: ACETAMINOPHEN 325 MG TABLET (FP) ONE (18:35)
[2019-02-15] MEDS ORDERED: INSULIN (NOVOLOG) ASPART 100 UNITS/ML 10ML VIAL ONE (18:58)
[2019-02-16] MEDS ORDERED: DEXTROSE 5%-WATER - 50 ML IVPB ONE ×3 (01:24→17:11)
[2019-02-16] MEDS ORDERED: PIPERACILLIN/TAZOBACTAM 3.375 GM VIAL IVPB ONE ×3 (01:24→17:11)
[2019-02-16] MEDS: morphine SULFATE 4 MG/ML VIAL IVPUSH PRN (01:42)
[2019-02-16] MEDS: PIPERACILLIN/TAZOB 3.375 GM 3.375 GM in DEXTROSE 5%-WATER - 50 ML IVPB SCH ×3 (01:42→17:36)
[2019-02-16] MEDS: LACTATED RINGERS SOLUTION 1,000 ML IV SCH ×2 (01:42→12:20)
[2019-02-16] MEDS: ONDANSETRON 4 MG/2 ML VIAL IVPUSH PRN ×3 (01:43→14:02)
[2019-02-16] MEDS: KETOROLAC TROMETHAMINE 30 MG/1 ML VIAL IVPUSH PRN ×3 (04:52→17:53)
--- NOTE | 2019-02-16 08:48 | PN ---
Progress Note (short form) - Note Progress Note: POD #2, s/p laparoscopic appendectomy for perforated appendix Pt seen and examined. Continues to have some abdominal pain, mainly in his RLQ. Tolerating clears. Has been oob to restroom. Reports one episode of perfuse diarrhea this AM. Voiding without issue. Denies n/v, cp/sob. Vital Signs Temp 97.9 F 02/16/19 06:00 Pulse 96 H 02/16/19 06:00 Resp 20 02/16/19 06:00 BP 134/69 02/16/19 06:00 Pulse Ox 98 02/15/19 09:00 Intake & Output 02/15/19 02/15/19 02/16/19 11:59 23:59 11:59 Intake Total 0559 812 0213 Output Total 425 330 Balance 044 687 1578 Intake: IV 9087 188 9189 LACTATED RINGERS SOLUTION 1000 1000 1,000 ml In 1,000 ml @ 100 mls/hr IV ASDIR RYAN Rx#:[id number] Lactated Ringers Solution 800 1,000 ml @ 125 mls/hr IV ASDIR RYAN Rx#: [id number] IVPB 150 Output: Drainage 25 30 Left Abdomen 25 30 Urine 400 300 Void 400 300 Other: Voiding Method Urinal Urinal # Unmeasured Voids Void 2 Bowel Movement No Weight Measurement Method Standing Scale CBC, BMP 02/15/19 07:20 02/15/19 07:20 PE: A&Ox3, NAD Unlabored resp on RA ABD: obese, moderately distended, diffuse TTP, focal TTP over RLQ appropriate to status. Drain at LLQ with seropurulent drainage in reservoir (tubing stripped and drain dressing changed). A/P: 38 y/o M w/ no significant PMHx a/w abdominal pain, found to have acute appendicitis/perforated appendix, now POD 2, s/p Laparoscopic appendectomy. Febrile to 103F yesterday evening, tachy to 1teens, normotensive Exam stable -Continue Clear diet -OOB as tolerated up to chair for meals -Trend fever curve -maintain LAURA drain, monitor and record output, change surrounding dressing prn -Probiotics added -IV ABX per ID -trend labs -No plan for d/c yet d/w attending Dr Eastman
[2019-02-16] MEDS: LACTOBACILLUS ACIDOPHILUS 1 TABLET PO SCH (10:46)
[2019-02-16] MEDS: LACTATED RINGERS SOLUTION 1,000 ML/1,000 ML INFUS.BAG IV SCH ×2 (12:17→13:00)
--- NOTE | 2019-02-16 12:31 | PN ---
Progress Note, Physician History of Present Illness: doing better than yesterday on liquids peritoneal cx result noted awaiting for identification of the bacteria - Current Medication List Current Medications: Active Medications Acetaminophen (Tylenol -) 650 mg PO Q6H PRN PRN Reason: PAIN LEVEL 6-10 Fentanyl (Sublimaze Injection -) 50 mcg IVPUSH [id number] PRN PRN Reason: PAIN-PACU ORDER X 4 DOSES ONLY Lactated Ringer's (Lactated Ringers Solution) 1,000 mls @ 125 mls/hr IV ASDIR [facility] Last Admin: 02/16/19 12:20 Dose: 125 mls/hr Piperacillin Sod/Tazobactam (Sod 3.375 gm/ Dextrose) 50 mls @ 100 mls/hr IVPB Q8H-IV [facility]; Protocol Last Admin: 02/16/19 10:47 Dose: 100 mls/hr Lactated Ringer's (Lactated Ringers Solution) 1,000 ml in 1,000 mls @ 100 mls/ hr IV ASDIR [facility] Last Admin: 02/16/19 12:17 Dose: Not Given Ketorolac Tromethamine (Toradol Injection -) 30 mg IVPUSH Q6H PRN PRN Reason: PAIN LEVEL 1-5 Stop: 02/20/19 00:14 Last Admin: 02/16/19 11:07 Dose: 30 mg Lactobacillus Acidophilus (Bacid -) 1 tab PO DAILY [facility] Last Admin: 02/16/19 10:46 Dose: 1 tab Morphine Sulfate (Morphine Sulfate) 4 mg IVPUSH Q4H PRN PRN Reason: PAIN LEVEL 6-10 Last Admin: 02/16/19 01:42 Dose: 4 mg Ondansetron HCl (Zofran Injection) 4 mg IVPUSH Q6H PRN PRN Reason: NAUSEA AND/OR VOMITING Last Admin: 02/16/19 08:52 Dose: 4 mg Promethazine HCl (Phenergan Injection -) 12.5 mg IVPUSH Q6H PRN PRN Reason: NAUSEA-FOR RESCUE AFTER 15 MIN - Objective Vital Signs: Vital Signs Temperature 97.9 F 02/16/19 06:00 Pulse Rate 96 H 02/16/19 06:00 Respiratory Rate 20 02/16/19 06:00 Blood Pressure 134/69 02/16/19 06:00 O2 Sat by Pulse Oximetry (%) 98 02/15/19 09:00 Constitutional: Yes: Calm, Mild Distress Cardiovascular: Yes: Regular Rate and Rhythm Respiratory: Yes: Regular, CTA Bilaterally Gastrointestinal: Yes: Soft, Tenderness, Other (drain in place,draining) Musculoskeletal: Yes: WNL Extremities: Yes: WNL Wound/Incision: Yes: Clean/Dry Neurological: Yes: Alert, Oriented Psychiatric: Yes: Alert, Oriented Labs: CBC, BMP 02/15/19 07:20 02/15/19 07:20 INR, PTT INR 1.22 (0.83-1.09) H 02/14/19 15:31 Assessment/Plan patient is a 38 y/o male with no history who presents with acute perforated appendicitis. Acute perforated appendicitis nicotine dependence abd pain nausea plan continue zosyn await for cx report hydration rest as per surgery
[2019-02-16] MEDS ORDERED: FLU VACCINE QUAD 60 MCG/0.5 ML (MDV 19-20) IM ONE (13:26)
[2019-02-16 15:21] LABS: BASO % 0.3 % (0-2.0); EOS % 0.6 % (0-4.5); HEMATOCRIT 42.2 % (35.4-49); HEMOGLOBIN 14.2 GM/dL (11.7-16.9); LYMPH % 5.7 % (8-40); MCH 31.1 pg (25.7-33.7); MCHC 33.7 g/dl (32.0-35.9); MEAN CELL VOLUME 92.4 fl (80-96); MEAN PLT VOLUME 7.8 fl (7.5-11.1); MONO % 10.3 % (3.8-10.2); NEUT % 83.1 % (42.8-82.8); PLATELET COUNT 362 K/MM3 (134-434); RBC 4.57 M/mm3 (4.00-5.60); RDW 12.9 % (11.9-15.9); WHITE BLOOD COUNT 16.7 K/mm3 (4.0-10.0)
[2019-02-16 15:49] LABS: BLOOD UREA NITROGEN 16.8 mg/dL (7-18); CALCIUM 8.7 mg/dL (8.5-10.1); MAGNESIUM 2.3 mg/dL (1.8-2.4); PHOSPHOROUS 2.7 mg/dL (2.5-4.9); POTASSIUM 4.3 mmol/L (3.5-5.1)
--- NOTE | 2019-02-16 17:46 | PN ---
Teaching Attending Note Name of Resident: Adrian Dela Cruz ATTENDING PHYSICIAN STATEMENT I saw and evaluated the patient. I reviewed the resident's note and discussed the case with the resident. I agree with the resident's findings and plan as documented with exceptions below. SUBJECTIVE: patient seen and examined. abdominal pain improved. passing gas, tolerating clears OBJECTIVE: Vital Signs Period Temp Pulse Resp BP Sys/Curtis Pulse Ox Last 24 Hr 97.9 F-103 F 90-111 17-20 105-135/66-86 Intake & Output 02/13/19 02/14/19 02/15/19 02/16/19 23:59 23:59 23:59 23:59 Intake Total 1650 1950 1000 Output Total 360 755 640 Balance 1290 1195 360 Weight 238 lb General: sitting in bed, no acute distress Abdomen:Soft, tenderness in lower quadrants, More in RLQ, LLQ LAURA drain present, no voluntary or involuntary guarding or rigidity, pos bowel sounds Extremities: no edema Home Medications Medication Instructions Recorded NK [No Known Home Medication] 02/14/19 Active Medications Acetaminophen (Tylenol -) 650 mg PO Q6H PRN PRN Reason: PAIN LEVEL 6-10 Fentanyl (Sublimaze Injection -) 50 mcg IVPUSH [id number] PRN PRN Reason: PAIN-PACU ORDER X 4 DOSES ONLY Piperacillin Sod/Tazobactam (Sod 3.375 gm/ Dextrose) 50 mls @ 100 mls/hr IVPB Q8H-IV RYAN; Protocol Last Admin: 02/16/19 17:36 Dose: Not Given Lactated Ringer's (Lactated Ringers Solution) 1,000 ml in 1,000 mls @ 100 mls/ hr IV ASDIR [facility] Last Admin: 02/16/19 12:17 Dose: Not Given Ketorolac Tromethamine (Toradol Injection -) 30 mg IVPUSH Q6H PRN PRN Reason: PAIN LEVEL 1-5 Stop: 02/20/19 00:14 Last Admin: 02/16/19 11:07 Dose: 30 mg Lactobacillus Acidophilus (Bacid -) 1 tab PO DAILY [facility] Last Admin: 02/16/19 10:46 Dose: 1 tab Morphine Sulfate (Morphine Sulfate) 4 mg IVPUSH Q4H PRN PRN Reason: PAIN LEVEL 6-10 Last Admin: 02/16/19 01:42 Dose: 4 mg Ondansetron HCl (Zofran Injection) 4 mg IVPUSH Q6H PRN PRN Reason: NAUSEA AND/OR VOMITING Last Admin: 02/16/19 14:02 Dose: 4 mg Promethazine HCl (Phenergan Injection -) 12.5 mg IVPUSH Q6H PRN PRN Reason: NAUSEA-FOR RESCUE AFTER 15 MIN Laboratory Results - last 24 hr 02/16/19 02/16/19 14:17 14:17 WBC 16.7 H RBC 4.57 Hgb 14.2 Hct 42.2 MCV 92.4 MCH 31.1 MCHC 33.7 RDW 12.9 Plt Count 362 MPV 7.8 Absolute Neuts (auto) 13.9 H Neutrophils % 83.1 H Lymphocytes % 5.7 L Monocytes % 10.3 H Eosinophils % 0.6 D Basophils % 0.3 Nucleated RBC % 0 Sodium 134 L Potassium 4.3 Chloride 103 Carbon Dioxide 24 Anion Gap 7 L BUN 16.8 Creatinine 1.0 Est GFR (CKD-EPI)AfAm 110.94 Est GFR (CKD-EPI)NonAf 95.72 Random Glucose 98 Calcium 8.7 Phosphorus 2.7 Magnesium 2.3 ASSESSMENT AND PLAN: 38 yom with Acute perforated appendicitis -Acute perforated appendicitis s/p Severiano Appy drain -Sepsis Plan: Fevers overnight, WBC noted. Surgery input noted. PO clears for now and serial abdominal exams. Encourage ambulation, Incentive spirometry. Zosyn per ID. Pain control [id number] dispo pending clinical improvement.
--- NOTE | 2019-02-16 18:00 | PATH ---
Surgical Pathology Report Patient Name: DEVON PERSON Med. Rec. #: [id number] /Age/Gender: 1980 (Age: 38) / M Account: [id number] Location: [facility] MED/SURG Taken: 02/14/2019 Received: 02/15/2019 Reported: 02/16/2019 Physicians: Carlos Eastman MD Specimen(s) Received APPENDIX, PERFORATED Clinical History Lower abdominal pain, perforated appendicitis Final Diagnosis APPENDIX, PERFORATED, LAPAROSCOPIC APPENDECTOMY: MARKEDLY DISRUPTED APPENDIX WITH ACUTE GANGRENOUS APPENDICITIS, PERIAPPENDICITIS, AND ACUTE SEROSITIS CONSISTENT WITH CLINICAL PERFORATION. Electronically Signed Masha Hanson M.D. Gross Description Received in formalin, labeled "appendix," is a markedly disrupted soft tissue consistent with portions of gangrenous appendix ranging in size from 3-4 cm. in maximum dimension. The outer surface is brown-thomas, hemorrhagic, necrotic, and shows abundant yellow exudate. The smaller fragment show stapled surgical margin and 1 cm in length distal portion of the appendix. The wall of the appendix averages 0.1-0.2 cm in thickness and lumen varies from 0.1 to 0.5 cm. Card Table Attendant sections are submitted in one cassette. TITO/02/15/2019 caro/02/15/2019
[2019-02-16] MEDS: ACETAMINOPHEN 325 MG TABLET (FP) PO PRN (20:18)
--- NOTE | 2019-02-16 20:48 | PN ---
Physical Exam: SUBJECTIVE: Patient seen and examined. Abdominal pain improved. Had multiple episodes of diarrhea. Endorses appetite. IS ~250cc. Ambulating to restroom OBJECTIVE: Vital Signs Period Temp Pulse Resp BP Sys/Curtis Pulse Ox Last 24 Hr 97.7 F-98.5 F 96-111 20-22 105-141/66-86 98 GENERAL: The patient is awake, alert, in no acute distress. HEAD: Normal with no signs of trauma. EYES: extraocular movements intact, sclera anicteric, conjunctiva clear. ENT: Ears normal, nares patent, moist mucous membranes. NECK: Trachea midline, full range of motion, supple. LUNGS: Breath sounds equal, clear to auscultation bilaterally, no wheezes, no crackles, no accessory muscle use. HEART: Regular rate and rhythm, S1, S2 without murmur, rub or gallop. ABDOMEN: Soft, nondistended, normoactive bowel sounds, no guarding, no rebound. Tenderness to palpation to lower abd. LAURA in RLQ with serosanguinous fluid EXTREMITIES: 2+ pulses, warm, well-perfused, no edema. NEUROLOGICAL: Normal speech, gait not observed. SKIN: Warm, dry, normal turgor, no rashes or lesions noted Laboratory Results - last 24 hr 02/16/19 02/16/19 14:17 14:17 WBC 16.7 H RBC 4.57 Hgb 14.2 Hct 42.2 MCV 92.4 MCH 31.1 MCHC 33.7 RDW 12.9 Plt Count 362 MPV 7.8 Absolute Neuts (auto) 13.9 H Neutrophils % 83.1 H Lymphocytes % 5.7 L Monocytes % 10.3 H Eosinophils % 0.6 D Basophils % 0.3 Nucleated RBC % 0 Sodium 134 L Potassium 4.3 Chloride 103 Carbon Dioxide 24 Anion Gap 7 L BUN 16.8 Creatinine 1.0 Est GFR (CKD-EPI)AfAm 110.94 Est GFR (CKD-EPI)NonAf 95.72 Random Glucose 98 Calcium 8.7 Phosphorus 2.7 Magnesium 2.3 Active Medications Generic Name Dose Route Start Last Admin Trade Name Freq PRN Reason Stop Dose Admin Acetaminophen 650 mg 02/15/19 19:46 02/16/19 20:18 Tylenol - PO 650 mg Q6H PRN Administration PAIN LEVEL 6-10 Fentanyl 50 mcg 02/14/19 19:15 Sublimaze Injection - IVPUSH [id number] PRN PAIN-PACU ORDER X 4 DOSES ONLY Piperacillin Sod/Tazobactam 50 mls @ 100 mls/hr 02/14/19 20:00 02/16/19 17:36 Sod 3.375 gm/ Dextrose IVPB Not Given Q8H-IV RYAN Protocol Lactated Ringer's 1,000 ml in 1,000 mls @ 100 mls/hr 02/14/19 22:00 02/16/19 13:00 Lactated Ringers Solution IV 100 mls/hr ASDIR RYAN Administration Ketorolac Tromethamine 30 mg 02/15/19 00:15 02/16/19 17:53 Toradol Injection - IVPUSH 02/20/19 00:14 30 mg Q6H PRN Administration PAIN LEVEL 1-5 Lactobacillus Acidophilus 1 tab 02/16/19 10:00 02/16/19 10:46 Bacid - PO 1 tab DAILY RYAN Administration Morphine Sulfate 4 mg 02/14/19 18:53 02/16/19 01:42 Morphine Sulfate IVPUSH 4 mg Q4H PRN Administration PAIN LEVEL 6-10 Ondansetron HCl 4 mg 02/16/19 13:37 02/16/19 14:02 Zofran Injection IVPUSH 4 mg Q6H PRN Administration NAUSEA AND/OR VOMITING Prochlorperazine Edisylate 10 mg 02/16/19 19:55 Compazine Injection - IVPB Q4H PRN NAUSEA AND/OR VOMITING Promethazine HCl 12.5 mg 02/14/19 19:15 Phenergan Injection - IVPUSH Q6H PRN NAUSEA-FOR RESCUE AFTER 15 MIN ASSESSMENT/PLAN: 37M w/ no significant PMH presenting with severe abdominal pain, CT A/P showing perforated appendicitis. POD#2 Laparoscopic Appendectomy w/ LAURA placement([facility] , 02/14/19) #Acute perforated appendicitis > CT Abd/Pelvis(02/14/19): acute perforated appendcitis, no abscess - POD#2 lap appey w/ LAURA drain([facility], 02/14/19) - monitor LAURA output - zosyn q6h for post surgical coverage - ID consult with Eduard - pain management: morphine 4mg IV q4h PRN - nausea control: zofran PRN, compazine PRN - incentive spirometer q1h - probiotics added #nicotine dependence - patient denied nicotine patch #DVT ppx - SCD's FEN - CLD Dispo: monitor patient on med surg Visit type - Emergency Visit Emergency Visit: No - New Patient This patient is new to me today: No - Critical Care Critical Care patient: No ATTENDING PHYSICIAN STATEMENT I saw and evaluated the patient. I reviewed the resident's note and discussed the case with the resident. I agree with the resident's findings and plan as documented. SUBJECTIVE: OBJECTIVE: ASSESSMENT AND PLAN:
[2019-02-16] MEDS: PROCHLORPERAZINE INJECTION 10 MG/2 ML VIAL IVPB PRN (21:33)
[2019-02-17] MEDS: KETOROLAC TROMETHAMINE 30 MG/1 ML VIAL IVPUSH PRN ×4 (01:01→18:21)
[2019-02-17] MEDS ORDERED: PIPERACILLIN/TAZOBACTAM 3.375 GM VIAL IVPB ONE ×3 (01:15→18:06)
[2019-02-17] MEDS ORDERED: DEXTROSE 5%-WATER - 50 ML IVPB ONE ×3 (01:15→18:07)
[2019-02-17] MEDS: PIPERACILLIN/TAZOB 3.375 GM 3.375 GM in DEXTROSE 5%-WATER - 50 ML IVPB SCH ×3 (01:40→18:11)
[2019-02-17] MEDS: PROCHLORPERAZINE INJECTION 10 MG/2 ML VIAL IVPB PRN (02:48)
[2019-02-17] MEDS ORDERED: PT OWN MED DRAWER 7, Y5N ONE (03:51)
[2019-02-17] MEDS: ONDANSETRON 4 MG/2 ML VIAL IVPUSH PRN ×2 (05:27→18:21)
[2019-02-17] MEDS ORDERED: MAG HYDROX/AL HYDROX/SIMETH 30 ML UNIT-DOSE CUP PO PRN (08:16)
[2019-02-17 08:18] LABS: BASO % 0.2 % (0-2.0); EOS % 0.8 % (0-4.5); HEMATOCRIT 40.8 % (35.4-49); HEMOGLOBIN 14.1 GM/dL (11.7-16.9); MCH 31.5 pg (25.7-33.7); MCHC 34.4 g/dl (32.0-35.9); MEAN CELL VOLUME 91.5 fl (80-96); MEAN PLT VOLUME 7.3 fl (7.5-11.1); MONO % 9.5 % (3.8-10.2); NEUT % 82.5 % (42.8-82.8); PLATELET COUNT 408 K/MM3 (134-434); RBC 4.46 M/mm3 (4.00-5.60); WHITE BLOOD COUNT 15.7 K/mm3 (4.0-10.0)
[2019-02-17] MEDS: LACTOBACILLUS ACIDOPHILUS 1 TABLET PO SCH (10:28)
--- NOTE | 2019-02-17 11:40 | PN ---
Progress Note, Physician History of Present Illness: improving wbc trending down cdiff negative - Current Medication List Current Medications: Active Medications Acetaminophen (Tylenol -) 650 mg PO Q6H PRN PRN Reason: PAIN LEVEL 6-10 Last Admin: 02/16/19 20:18 Dose: 650 mg Al Hydroxide/Mg Hydroxide (Mylanta Oral Suspension -) 30 ml PO Q6H PRN PRN Reason: DYSPEPSIA Fentanyl (Sublimaze Injection -) 50 mcg IVPUSH [id number] PRN PRN Reason: PAIN-PACU ORDER X 4 DOSES ONLY Piperacillin Sod/Tazobactam (Sod 3.375 gm/ Dextrose) 50 mls @ 100 mls/hr IVPB Q8H-IV RYAN; Protocol Last Admin: 02/17/19 10:28 Dose: 100 mls/hr Lactated Ringer's (Lactated Ringers Solution) 1,000 ml in 1,000 mls @ 100 mls/ hr IV ASDIR RYAN Last Admin: 02/16/19 13:00 Dose: 100 mls/hr Ketorolac Tromethamine (Toradol Injection -) 30 mg IVPUSH Q6H PRN PRN Reason: PAIN LEVEL 1-5 Stop: 02/20/19 00:14 Last Admin: 02/17/19 06:51 Dose: 30 mg Lactobacillus Acidophilus (Bacid -) 1 tab PO DAILY [facility] Last Admin: 02/17/19 10:28 Dose: 1 tab Morphine Sulfate (Morphine Sulfate) 4 mg IVPUSH Q4H PRN PRN Reason: PAIN LEVEL 6-10 Last Admin: 02/16/19 01:42 Dose: 4 mg Ondansetron HCl (Zofran Injection) 4 mg IVPUSH Q6H PRN PRN Reason: NAUSEA AND/OR VOMITING Last Admin: 02/17/19 05:27 Dose: 4 mg Prochlorperazine Edisylate (Compazine Injection -) 10 mg IVPB Q4H PRN PRN Reason: NAUSEA AND/OR VOMITING Last Admin: 02/17/19 02:48 Dose: 10 mg Promethazine HCl (Phenergan Injection -) 12.5 mg IVPUSH Q6H PRN PRN Reason: NAUSEA-FOR RESCUE AFTER 15 MIN - Objective Vital Signs: Vital Signs Temperature 98.2 F 02/17/19 05:00 Pulse Rate 88 02/17/19 05:00 Respiratory Rate 20 02/17/19 05:00 Blood Pressure 127/88 02/17/19 05:00 O2 Sat by Pulse Oximetry (%) 98 02/16/19 21:00 Constitutional: Yes: Calm, Mild Distress Cardiovascular: Yes: S1, S2 Respiratory: Yes: Regular, CTA Bilaterally Gastrointestinal: Yes: Soft, Other Musculoskeletal: Yes: WNL Extremities: Yes: WNL Neurological: Yes: Alert, Oriented Psychiatric: Yes: Alert, Oriented Labs: CBC, BMP 02/17/19 07:40 02/16/19 14:17 INR, PTT INR 1.22 (0.83-1.09) H 02/14/19 15:31 Assessment/Plan patient is a 38 y/o male with no history who presents with acute perforated appendicitis. Acute perforated appendicitis nicotine dependence abd pain nausea plan continue zosyn await for cx report hydration rest as per surgery
--- NOTE | 2019-02-17 13:29 | PN ---
Progress Note (short form) - Note Progress Note: 38yo M s/p lap appy for perforated appendicitis. Pt seen and examined at bedside. Pt complains of mild abd pain. Pt denies fever, chills, n/v. Pt tolerating clears and ambulating well. Last Vital Signs Temp Pulse Resp BP Pulse Ox 98.2 F 88 20 127/88 98 02/17/19 05:00 02/17/19 05:00 02/17/19 05:00 02/17/19 05:00 02/16/19 21:00 CBC, BMP 02/17/19 07:40 02/16/19 14:17 PE: Gen: a&O X3 Resp: breathing comfortably Abd: soft, nondistended, mild abd tenderness, drain in place with serous/cloudy drainage. Ext: no edema Problem List - Problems (1) Appendicitis with perforation Assessment/Plan: Plan - will adv to regular diet. -will keep drain in for now reevaluate tomorrow. -encourage oob/ambulate -abx as per ID Case seen and discussed with Dr. Eastman who agrees with plan Code(s): K35.32 - ACUTE APPENDICITIS WITH PERF AND LOC PERITONITIS, W/O ABSCS
--- NOTE | 2019-02-17 15:16 | PN ---
Teaching Attending Note Name of Resident: Adrian Dela Cruz ATTENDING PHYSICIAN STATEMENT I saw and evaluated the patient. I reviewed the resident's note and discussed the case with the resident. I agree with the resident's findings and plan as documented with exceptions below. SUBJECTIVE: Patient seen and examined, abdominal pain improved, tolerating diet well. Ambulating. However, overnight nausea, currently better. OBJECTIVE: Vital Signs Period Temp Pulse Resp BP Sys/Curtis Pulse Ox Last 24 Hr 97.7 F-98.5 F 88-111 20-22 127-141/77-88 98 Intake & Output 02/14/19 02/15/19 02/16/19 02/17/19 23:59 23:59 23:59 23:59 Intake Total 1650 1950 2400 1850 Output Total 285 796 8196 50 Balance 1290 1195 1360 1800 Weight 238 lb General: lying in bed in no acute distress Abdomen;Soft, obese, improved tenderness in lower quadrant, most in RLQ, LLQ LAURA drain, pos bowel sounds Extremities: no edema Active Medications Acetaminophen (Tylenol -) 650 mg PO Q6H PRN PRN Reason: PAIN LEVEL 6-10 Last Admin: 02/16/19 20:18 Dose: 650 mg Al Hydroxide/Mg Hydroxide (Mylanta Oral Suspension -) 30 ml PO Q6H PRN PRN Reason: DYSPEPSIA Last Admin: 02/17/19 12:51 Dose: 30 ml Fentanyl (Sublimaze Injection -) 50 mcg IVPUSH [id number] PRN PRN Reason: PAIN-PACU ORDER X 4 DOSES ONLY Piperacillin Sod/Tazobactam (Sod 3.375 gm/ Dextrose) 50 mls @ 100 mls/hr IVPB Q8H-IV RYAN; Protocol Last Admin: 02/17/19 10:28 Dose: 100 mls/hr Lactated Ringer's (Lactated Ringers Solution) 1,000 ml in 1,000 mls @ 100 mls/ hr IV ASDIR RYAN Last Admin: 02/16/19 13:00 Dose: 100 mls/hr Ketorolac Tromethamine (Toradol Injection -) 30 mg IVPUSH Q6H PRN PRN Reason: PAIN LEVEL 1-5 Stop: 02/20/19 00:14 Last Admin: 02/17/19 12:44 Dose: 30 mg Lactobacillus Acidophilus (Bacid -) 1 tab PO DAILY RYAN Last Admin: 02/17/19 10:28 Dose: 1 tab Morphine Sulfate (Morphine Sulfate) 4 mg IVPUSH Q4H PRN PRN Reason: PAIN LEVEL 6-10 Last Admin: 02/16/19 01:42 Dose: 4 mg Ondansetron HCl (Zofran Injection) 4 mg IVPUSH Q6H PRN PRN Reason: NAUSEA AND/OR VOMITING Last Admin: 02/17/19 05:27 Dose: 4 mg Prochlorperazine Edisylate (Compazine Injection -) 10 mg IVPB Q4H PRN PRN Reason: NAUSEA AND/OR VOMITING Last Admin: 02/17/19 02:48 Dose: 10 mg Promethazine HCl (Phenergan Injection -) 12.5 mg IVPUSH Q6H PRN PRN Reason: NAUSEA-FOR RESCUE AFTER 15 MIN Laboratory Results - last 24 hr 02/16/19 02/16/19 02/17/19 14:17 14:17 07:40 WBC 16.7 H 15.7 H RBC 4.57 4.46 Hgb 14.2 14.1 Hct 42.2 40.8 MCV 92.4 91.5 MCH 31.1 31.5 MCHC 33.7 34.4 RDW 12.9 13.0 Plt Count 362 408 MPV 7.8 7.3 L Absolute Neuts (auto) 13.9 H 13.0 H Neutrophils % 83.1 H 82.5 Lymphocytes % 5.7 L 7.0 L D Monocytes % 10.3 H 9.5 Eosinophils % 0.6 D 0.8 Basophils % 0.3 0.2 Nucleated RBC % 0 0 Sodium 134 L Potassium 4.3 Chloride 103 Carbon Dioxide 24 Anion Gap 7 L BUN 16.8 Creatinine 1.0 Est GFR (CKD-EPI)AfAm 110.94 Est GFR (CKD-EPI)NonAf 95.72 Random Glucose 98 Calcium 8.7 Phosphorus 2.7 Magnesium 2.3 Microbiology 02/14/19 19:17 Peritoneal Fluid Gram Stain - Final 02/14/19 19:17 Peritoneal Fluid Body Fluid Culture - Preliminary Escherichia Coli Group D Strep Or Entero Coccus 02/14/19 19:17 Peritoneal Fluid Anaerobic Culture - Final NO ANAEROBES WERE ISOLATED 02/16/19 20:30 Stool Clostridioides difficile Antigen - Final 02/16/19 20:30 Stool Clostridioides difficile Toxin Assay - Final ASSESSMENT AND PLAN: 38 yom with Acute perforated appendicitis -Acute perforated appendicitis s/p Severiano Appy drain -Sepsis Plan: no further fevers, WBC improved. Surgery/ID input noted. Follow up cultures Re-evaluate for drain removal tomorrow. Pain control Ambulation/OOB, incentive spirometry DVTPPX dispo dc in 24 hours if doing well, drain removed and no new concerns. Discussed with patient in detail, all questions answered.
--- NOTE | 2019-02-17 18:55 | PN ---
Physical Exam: SUBJECTIVE: Patient seen and examined. O/N: refused zosyn d/t belief that it was causing N/V. Counseled and became amenable. Tolerated CLD. Had loose stools x5 w/o bloody OBJECTIVE: Vital Signs Period Temp Pulse Resp BP Sys/Curtis Pulse Ox Last 24 Hr 97.7 F-98.7 F 65-99 20-22 127-145/77-88 98-98 GENERAL: The patient is awake, alert, in no acute distress. HEAD: Normal with no signs of trauma. EYES: clera anicteric, conjunctiva clear. ENT: Ears normal, nares patent, moist mucous membranes. NECK: Trachea midline, full range of motion, supple. LUNGS: Breath sounds equal, clear to auscultation bilaterally, no wheezes, no crackles, no accessory muscle use. IS ~1000ml HEART: Regular rate and rhythm, S1, S2 without murmur, rub or gallop. ABDOMEN: Soft, nondistended, tympanic to percussion, normoactive bowel sounds, no guarding, no rebound. Tenderness to palpation to lower abd. LAURA in RLQ with serosanguinous fluid EXTREMITIES: 2+ pulses, warm, well-perfused, no edema. NEUROLOGICAL: Normal speech, gait not observed. SKIN: Warm, dry, normal turgor, no rashes or lesions noted Laboratory Results - last 24 hr 02/17/19 07:40 WBC 15.7 H RBC 4.46 Hgb 14.1 Hct 40.8 MCV 91.5 MCH 31.5 MCHC 34.4 RDW 13.0 Plt Count 408 MPV 7.3 L Absolute Neuts (auto) 13.0 H Neutrophils % 82.5 Lymphocytes % 7.0 L D Monocytes % 9.5 Eosinophils % 0.8 Basophils % 0.2 Nucleated RBC % 0 Active Medications Generic Name Dose Route Start Last Admin Trade Name Freq PRN Reason Stop Dose Admin Acetaminophen 650 mg 02/15/19 19:46 02/16/19 20:18 Tylenol - PO 650 mg Q6H PRN Administration PAIN LEVEL 6-10 Al Hydroxide/Mg Hydroxide 30 ml 02/17/19 08:16 02/17/19 12:51 Mylanta Oral Suspension - PO 30 ml Q6H PRN Administration DYSPEPSIA Piperacillin Sod/Tazobactam 50 mls @ 100 mls/hr 02/14/19 20:00 02/17/19 18:11 Sod 3.375 gm/ Dextrose IVPB 100 mls/hr Q8H-IV RYAN Administration Protocol Lactated Ringer's 1,000 ml in 1,000 mls @ 100 mls/hr 02/14/19 22:00 02/16/19 13:00 Lactated Ringers Solution IV 100 mls/hr ASDIR RYAN Administration Ketorolac Tromethamine 30 mg 02/15/19 00:15 02/17/19 18:21 Toradol Injection - IVPUSH 02/20/19 00:14 30 mg Q6H PRN Administration PAIN LEVEL 1-5 Lactobacillus Acidophilus 1 tab 02/16/19 10:00 02/17/19 10:28 Bacid - PO 1 tab DAILY RYAN Administration Morphine Sulfate 4 mg 02/14/19 18:53 02/16/19 01:42 Morphine Sulfate IVPUSH 4 mg Q4H PRN Administration PAIN LEVEL 6-10 Ondansetron HCl 4 mg 02/16/19 13:37 02/17/19 18:21 Zofran Injection IVPUSH 4 mg Q6H PRN Administration NAUSEA AND/OR VOMITING Prochlorperazine Edisylate 10 mg 02/16/19 19:55 02/17/19 02:48 Compazine Injection - IVPB 10 mg Q4H PRN Administration NAUSEA AND/OR VOMITING Promethazine HCl 12.5 mg 02/14/19 19:15 Phenergan Injection - IVPUSH Q6H PRN NAUSEA-FOR RESCUE AFTER 15 MIN ASSESSMENT/PLAN: 37M w/ no significant PMH presenting with severe abdominal pain, CT A/P showing perforated appendicitis. POD#2 Laparoscopic Appendectomy w/ LAURA placement([facility] , 02/14/19) #Acute perforated appendicitis > CT Abd/Pelvis(02/14/19): acute perforated appendcitis, no abscess > peritoneal fluid cx(02/14/19) -- E coli, Enterococcus vs Group D Strept > cdiff -- neg - POD#3 lap appey w/ LAURA drain([facility], 02/14/19) - monitor LAURA output - zosyn q6h for post surgical coverage - ID consult with Eduard - pain management: morphine 4mg IV q4h PRN - nausea control: zofran PRN, compazine PRN - incentive spirometer q1h - probiotics added - LAURA drain -- Surgery will reevaluate tomorrow #nausea -zofran PRN and compazine PRN #nicotine dependence - patient denied nicotine patch #DVT ppx - SCD's FEN - regular diet -- as per surgery Dispo: monitor patient on med surg Visit type - Emergency Visit Emergency Visit: No - New Patient This patient is new to me today: No - Critical Care Critical Care patient: No ATTENDING PHYSICIAN STATEMENT I saw and evaluated the patient. I reviewed the resident's note and discussed the case with the resident. I agree with the resident's findings and plan as documented. SUBJECTIVE: OBJECTIVE: ASSESSMENT AND PLAN:
[2019-02-18] MEDS ORDERED: PIPERACILLIN/TAZOBACTAM 3.375 GM VIAL IVPB ONE ×3 (00:32→17:06)
[2019-02-18] MEDS ORDERED: DEXTROSE 5%-WATER - 50 ML IVPB ONE ×3 (00:33→17:06)
[2019-02-18] MEDS: ONDANSETRON 4 MG/2 ML VIAL IVPUSH PRN ×2 (00:50→17:10)
[2019-02-18] MEDS: KETOROLAC TROMETHAMINE 30 MG/1 ML VIAL IVPUSH PRN ×3 (00:50→19:50)
[2019-02-18] MEDS: PIPERACILLIN/TAZOB 3.375 GM 3.375 GM in DEXTROSE 5%-WATER - 50 ML IVPB SCH ×3 (01:00→17:10)
[2019-02-18] MEDS: LACTATED RINGERS SOLUTION 1,000 ML/1,000 ML INFUS.BAG IV SCH (04:56)
[2019-02-18] MEDS: LACTOBACILLUS ACIDOPHILUS 1 TABLET PO SCH (10:05)
[2019-02-18 10:50] LABS: BASO % 0.6 % (0-2.0); EOS % 2.3 % (0-4.5); HEMATOCRIT 36.7 % (35.4-49); HEMOGLOBIN 12.4 GM/dL (11.7-16.9); MCHC 33.7 g/dl (32.0-35.9); MEAN CELL VOLUME 91.8 fl (80-96); MEAN PLT VOLUME 7.1 fl (7.5-11.1); MONO % 14.6 % (3.8-10.2); NEUT % 69.5 % (42.8-82.8); PLATELET COUNT 402 K/MM3 (134-434); RBC 3.99 M/mm3 (4.00-5.60); RDW 13.3 % (11.9-15.9)
--- NOTE | 2019-02-18 14:21 | PN ---
Progress Note (short form) - Note Progress Note: Attending Surgeon POD #4 No c/o; ambulating and tolerating a diet; diarrhea abating Last Vital Signs Temp Pulse Resp BP Pulse Ox 98.1 F 62 20 134/75 98 02/17/19 19:48 02/17/19 19:48 02/17/19 19:48 02/17/19 19:48 02/17/19 21:00 abdo-soft; non tender; port sites c/d/i; LAURA quality noted and more serous Microbiology 02/14/19 19:17 Gram Stain - Final Peritoneal Fluid Body Fluid Culture - Final Escherichia Coli Enterococcus Faecium Anaerobic Culture - Final NO ANAEROBES WERE ISOLATED CBC, BMP 02/18/19 10:30 02/16/19 14:17 LAURA 70 cc/24 hours Path: gangrenous appendicitis IMP: improving PLAN: Continue IVAB'sand drain; ambulate; trend WBC. Carlos Eastman MD FACS
--- NOTE | 2019-02-18 15:21 | PN ---
Physical Exam: SUBJECTIVE: Patient seen and examined, nausea improved, tolerating diet well. abdominal pain better, no new complaints. OBJECTIVE: Vital Signs Period Temp Pulse Resp BP Sys/Curtis Pulse Ox Last 24 Hr 98.1 F-98.1 F 62-68 20-20 134-145/75-85 98 General: lying in bed in no acute distress neck: soft, supple HEENT: PERRL CVS:S1S2 regular Abdomen;Soft, obese, improved tenderness in lower quadrant, most in RLQ, LLQ LAURA drain, pos bowel sounds Extremities: no edema Laboratory Results - last 24 hr 02/18/19 10:30 WBC 14.0 H RBC 3.99 L Hgb 12.4 Hct 36.7 MCV 91.8 MCH 31.0 MCHC 33.7 RDW 13.3 Plt Count 402 MPV 7.1 L Absolute Neuts (auto) 9.8 H Neutrophils % 69.5 Lymphocytes % 13.0 D Monocytes % 14.6 H Eosinophils % 2.3 D Basophils % 0.6 Nucleated RBC % 0 Active Medications Generic Name Dose Route Start Last Admin Trade Name Johnq PRN Reason Stop Dose Admin Acetaminophen 650 mg 02/15/19 19:46 02/16/19 20:18 Tylenol - PO 650 mg Q6H PRN Administration PAIN LEVEL 6-10 Al Hydroxide/Mg Hydroxide 30 ml 02/17/19 08:16 02/17/19 12:51 Mylanta Oral Suspension - PO 30 ml Q6H PRN Administration DYSPEPSIA Piperacillin Sod/Tazobactam 50 mls @ 100 mls/hr 02/14/19 20:00 02/18/19 10:05 Sod 3.375 gm/ Dextrose IVPB 100 mls/hr Q8H-IV RYAN Administration Protocol Ketorolac Tromethamine 30 mg 02/15/19 00:15 02/18/19 11:52 Toradol Injection - IVPUSH 02/20/19 00:14 30 mg Q6H PRN Administration PAIN LEVEL 1-5 Lactobacillus Acidophilus 1 tab 02/16/19 10:00 02/18/19 10:05 Bacid - PO 1 tab DAILY RYAN Administration Ondansetron HCl 4 mg 02/16/19 13:37 02/18/19 00:50 Zofran Injection IVPUSH 4 mg Q6H PRN Administration NAUSEA AND/OR VOMITING Prochlorperazine Edisylate 10 mg 02/16/19 19:55 02/17/19 02:48 Compazine Injection - IVPB 10 mg Q4H PRN Administration NAUSEA AND/OR VOMITING Promethazine HCl 12.5 mg 02/14/19 19:15 Phenergan Injection - IVPUSH Q6H PRN NAUSEA-FOR RESCUE AFTER 15 MIN Microbiology 02/14/19 19:17 Peritoneal Fluid Gram Stain - Final 02/14/19 19:17 Peritoneal Fluid Body Fluid Culture - Final Escherichia Coli Enterococcus Faecium 02/14/19 19:17 Peritoneal Fluid Anaerobic Culture - Final NO ANAEROBES WERE ISOLATED 02/16/19 20:30 Stool Clostridioides difficile Antigen - Final 02/16/19 20:30 Stool Clostridioides difficile Toxin Assay - Final ASSESSMENT/PLAN: 38 yom with Acute perforated appendicitis -Acute perforated appendicitis s/p Severaino Appy drain -Sepsis Plan: No further fevers, WBC improved. Surgery/ID input noted. Cultures noted. Discussed with Dr. Eastman, plan for drain removal in 48 hours. Pain control Ambulation/OOB, incentive spirometry DVTPPX dispo dc in 48 hours if doing well, drain removed and no new concerns on PO abx. Discussed with patient in detail, all questions answered. Visit type - Emergency Visit Emergency Visit: Yes ED Registration Date: 02/14/19 Care time: The patient presented to the Emergency Department on the above date and was hospitalized for further evaluation of their emergent condition. - New Patient This patient is new to me today: No - Critical Care Critical Care patient: No - Discharge Referral Referred to [facility] Med P.C.: No
[2019-02-18 16:05] LABS: ANISOCYTOSIS 1+; MACROCYTOSIS 0; PLATELET ESTIMATE NORMAL
--- NOTE | 2019-02-18 22:23 | PN ---
Progress Note, Physician History of Present Illness: Pt is starting to feel better. Had sudden onset nausea earlier but lasted only a couple of minutes. Tolerated diet today. Reports 3 unformed BMs. Pain is controlled. - Current Medication List Current Medications: Active Medications Acetaminophen (Tylenol -) 650 mg PO Q6H PRN PRN Reason: PAIN LEVEL 6-10 Last Admin: 02/16/19 20:18 Dose: 650 mg Al Hydroxide/Mg Hydroxide (Mylanta Oral Suspension -) 30 ml PO Q6H PRN PRN Reason: DYSPEPSIA Last Admin: 02/17/19 12:51 Dose: 30 ml Piperacillin Sod/Tazobactam (Sod 3.375 gm/ Dextrose) 50 mls @ 100 mls/hr IVPB Q8H-IV RYAN; Protocol Last Admin: 02/18/19 17:10 Dose: 100 mls/hr Ketorolac Tromethamine (Toradol Injection -) 30 mg IVPUSH Q6H PRN PRN Reason: PAIN LEVEL 1-5 Stop: 02/20/19 00:14 Last Admin: 02/18/19 19:50 Dose: 30 mg Lactobacillus Acidophilus (Bacid -) 1 tab PO DAILY RYAN Last Admin: 02/18/19 10:05 Dose: 1 tab Ondansetron HCl (Zofran Injection) 4 mg IVPUSH Q6H PRN PRN Reason: NAUSEA AND/OR VOMITING Last Admin: 02/18/19 17:10 Dose: 4 mg Prochlorperazine Edisylate (Compazine Injection -) 10 mg IVPB Q4H PRN PRN Reason: NAUSEA AND/OR VOMITING Last Admin: 02/17/19 02:48 Dose: 10 mg Promethazine HCl (Phenergan Injection -) 12.5 mg IVPUSH Q6H PRN PRN Reason: NAUSEA-FOR RESCUE AFTER 15 MIN - Objective Vital Signs: Vital Signs Temperature 98.4 F 02/18/19 19:55 Pulse Rate 60 02/18/19 19:55 Respiratory Rate 16 02/18/19 19:55 Blood Pressure 111/74 02/18/19 19:55 O2 Sat by Pulse Oximetry (%) 98 02/18/19 21:00 Constitutional: Yes: No Distress, Calm Cardiovascular: Yes: Regular Rate and Rhythm Respiratory: Yes: CTA Bilaterally Gastrointestinal: Yes: Normal Bowel Sounds, Soft, Other (drain with mildly purulent fluid) Genitourinary: Yes: WNL Extremities: Yes: WNL Edema: No Peripheral Pulses WNL: Yes Integumentary: Yes: WNL Wound/Incision: Yes: Other (dressing intact, drain noted) Neurological: Yes: Alert, Oriented Labs: CBC, BMP 02/18/19 10:30 02/16/19 14:17 INR, PTT INR 1.22 (0.83-1.09) H 02/14/19 15:31 Problem List - Problems (1) Appendicitis with perforation Code(s): K35.32 - ACUTE APPENDICITIS WITH PERF AND LOC PERITONITIS, W/O ABSCS Assessment/Plan Acute appendicitis with perforation s/p appendectomy Leukocytosis -- Pt with wbc trending down, afebrile -- Culture results noted, continue IV antibiotics for now -- repeat cbc in a.m.
[2019-02-19] MEDS ORDERED: DEXTROSE 5%-WATER - 50 ML IVPB ONE ×3 (01:11→17:29)
[2019-02-19] MEDS ORDERED: PIPERACILLIN/TAZOBACTAM 3.375 GM VIAL IVPB ONE ×3 (01:11→17:29)
[2019-02-19] MEDS: KETOROLAC TROMETHAMINE 30 MG/1 ML VIAL IVPUSH PRN ×3 (01:28→16:49)
[2019-02-19] MEDS: PIPERACILLIN/TAZOB 3.375 GM 3.375 GM in DEXTROSE 5%-WATER - 50 ML IVPB SCH ×3 (01:30→18:13)
[2019-02-19] MEDS: LACTOBACILLUS ACIDOPHILUS 1 TABLET PO SCH (10:33)
[2019-02-19] MEDS: ACETAMINOPHEN 325 MG TABLET (FP) PO PRN (11:26)
--- NOTE | 2019-02-19 11:38 | PN ---
Progress Note (short form) - Note Progress Note: Attending Surgeon POD#5 No c/o Last Vital Signs Temp Pulse Resp BP Pulse Ox 97.8 F 62 18 129/71 98 02/19/19 06:20 02/19/19 06:20 02/19/19 06:20 02/19/19 06:20 02/18/19 21:00 abdo-soft; flat and non tender LAURA 40 cc. IMP: improving PLAN: Continue present tx. remove LAURA 02/20/19; continue antibiotics as per ID. Carlos Eastman MD FACS
--- NOTE | 2019-02-19 14:53 | PN ---
Physical Exam: SUBJECTIVE: Patient seen and examined, markedly improved, ambulating, tolerating diet well. OBJECTIVE: Vital Signs Period Temp Pulse Resp BP Sys/Curtis Pulse Ox Last 24 Hr 97.8 F-98.4 F 60-62 16-18 111-129/71-74 98 General: lying in bed in no acute distress Neck: soft, supple HEENT: PERRL CVS:S1S2 regular Chest: CTAB, no rales or wheezing Abdomen;Soft, obese, improved tenderness in lower quadrant, most in RLQ, LLQ LAURA drain, pos bowel sounds Extremities: no edema Laboratory Results - last 24 hr 02/18/19 10:30 Neutrophils % (Manual) 62.0 D Band Neutrophils % 2.0 Lymphocytes % (Manual) 12.0 D Monocytes % (Manual) 4 Eosinophils % (Manual) 7.0 H D Basophils % (Manual) 1.0 D Myelocytes % (Man) 4 H D Promyelocytes % (Man) 0 Blast Cells % (Manual) 0 Metamyelocytes 1 D Hypochromia 0 Platelet Estimate Normal Platelet Comment Present Polychromasia 0 Poikilocytosis 1+ Anisocytosis 1+ Microcytosis 1+ Macrocytosis 0 Spherocytes 1+ Active Medications Generic Name Dose Route Start Last Admin Trade Name Freq PRN Reason Stop Dose Admin Acetaminophen 650 mg 02/15/19 19:46 02/19/19 11:26 Tylenol - PO 650 mg Q6H PRN Administration PAIN LEVEL 6-10 Al Hydroxide/Mg Hydroxide 30 ml 02/17/19 08:16 02/17/19 12:51 Mylanta Oral Suspension - PO 30 ml Q6H PRN Administration DYSPEPSIA Piperacillin Sod/Tazobactam 50 mls @ 100 mls/hr 02/14/19 20:00 02/19/19 10:33 Sod 3.375 gm/ Dextrose IVPB 100 mls/hr Q8H-IV RYAN Administration Protocol Ketorolac Tromethamine 30 mg 02/15/19 00:15 02/19/19 07:06 Toradol Injection - IVPUSH 02/20/19 00:14 30 mg Q6H PRN Administration PAIN LEVEL 1-5 Lactobacillus Acidophilus 1 tab 02/16/19 10:00 02/19/19 10:33 Bacid - PO 1 tab DAILY RYAN Administration Ondansetron HCl 4 mg 02/16/19 13:37 02/18/19 17:10 Zofran Injection IVPUSH 4 mg Q6H PRN Administration NAUSEA AND/OR VOMITING Prochlorperazine Edisylate 10 mg 02/16/19 19:55 02/17/19 02:48 Compazine Injection - IVPB 10 mg Q4H PRN Administration NAUSEA AND/OR VOMITING Promethazine HCl 12.5 mg 02/14/19 19:15 Phenergan Injection - IVPUSH Q6H PRN NAUSEA-FOR RESCUE AFTER 15 MIN ASSESSMENT/PLAN: 38 yom with Acute perforated appendicitis -Acute perforated appendicitis s/p Severiano Appy drain -Sepsis Plan: No further fevers, WBC improved. Surgery/ID input noted. Cultures noted. Discussed with Dr. Eastman, plan for drain removal tomorrow. Pain control Ambulation/OOB, incentive spirometry DVTPPX dispo dc in AM if doing well, drain removed and no new concerns on PO abx. Discussed with patient and nursing in detail, all questions answered. Visit type - Emergency Visit Emergency Visit: Yes ED Registration Date: 02/14/19 Care time: The patient presented to the Emergency Department on the above date and was hospitalized for further evaluation of their emergent condition. - New Patient This patient is new to me today: No - Critical Care Critical Care patient: No - Discharge Referral Referred to [facility] No
--- NOTE | 2019-02-19 17:14 | PN ---
Progress Note, Physician History of Present Illness: Pt feels better today. Had 2 normal BMs. No current abd pain/n/v. Remains afebrile. No new complaints. - Current Medication List Current Medications: Active Medications Acetaminophen (Tylenol -) 650 mg PO Q6H PRN PRN Reason: PAIN LEVEL 6-10 Last Admin: 02/19/19 11:26 Dose: 650 mg Al Hydroxide/Mg Hydroxide (Mylanta Oral Suspension -) 30 ml PO Q6H PRN PRN Reason: DYSPEPSIA Last Admin: 02/17/19 12:51 Dose: 30 ml Piperacillin Sod/Tazobactam (Sod 3.375 gm/ Dextrose) 50 mls @ 100 mls/hr IVPB Q8H-IV RYAN; Protocol Last Admin: 02/19/19 10:33 Dose: 100 mls/hr Ketorolac Tromethamine (Toradol Injection -) 30 mg IVPUSH Q6H PRN PRN Reason: PAIN LEVEL 1-5 Stop: 02/20/19 00:14 Last Admin: 02/19/19 16:49 Dose: 30 mg Lactobacillus Acidophilus (Bacid -) 1 tab PO DAILY RYAN Last Admin: 02/19/19 10:33 Dose: 1 tab Ondansetron HCl (Zofran Injection) 4 mg IVPUSH Q6H PRN PRN Reason: NAUSEA AND/OR VOMITING Last Admin: 02/18/19 17:10 Dose: 4 mg Prochlorperazine Edisylate (Compazine Injection -) 10 mg IVPB Q4H PRN PRN Reason: NAUSEA AND/OR VOMITING Last Admin: 02/17/19 02:48 Dose: 10 mg Promethazine HCl (Phenergan Injection -) 12.5 mg IVPUSH Q6H PRN PRN Reason: NAUSEA-FOR RESCUE AFTER 15 MIN - Objective Vital Signs: Vital Signs Temperature 98.1 F 02/19/19 15:00 Pulse Rate 65 02/19/19 15:00 Respiratory Rate 18 02/19/19 15:00 Blood Pressure 151/73 02/19/19 15:00 O2 Sat by Pulse Oximetry (%) 98 02/19/19 09:00 Constitutional: Yes: No Distress, Calm Cardiovascular: Yes: Regular Rate and Rhythm Respiratory: Yes: CTA Bilaterally Gastrointestinal: Yes: Normal Bowel Sounds, Soft, Other (LAURA drain) Genitourinary: Yes: WNL Edema: No Peripheral Pulses WNL: Yes Integumentary: Yes: WNL Neurological: Yes: Alert, Oriented Labs: CBC, BMP 02/18/19 10:30 02/16/19 14:17 INR, PTT INR 1.22 (0.83-1.09) H 02/14/19 15:31 Microbiology 02/14/19 19:17 Peritoneal Fluid Gram Stain - Final 02/14/19 19:17 Peritoneal Fluid Body Fluid Culture - Final Escherichia Coli Enterococcus Faecium 02/14/19 19:17 Peritoneal Fluid Anaerobic Culture - Final NO ANAEROBES WERE ISOLATED 02/16/19 20:30 Stool Clostridioides difficile Antigen - Final 02/16/19 20:30 Stool Clostridioides difficile Toxin Assay - Final Problem List - Problems (1) Appendicitis with perforation Code(s): K35.32 - ACUTE APPENDICITIS WITH PERF AND LOC PERITONITIS, W/O ABSCS Assessment/Plan Acute appendicitis with perforation s/p appendectomy Leukocytosis -- continue IV antibiotics -- pt afebrile, wbc trending down, repeat cbc tomorrow -- surgery following continue monitor
[2019-02-20] MEDS: ACETAMINOPHEN 325 MG TABLET (FP) PO PRN (00:26)
[2019-02-20] MEDS ORDERED: DEXTROSE 5%-WATER - 50 ML IVPB ONE ×2 (01:06→09:57)
[2019-02-20] MEDS ORDERED: PIPERACILLIN/TAZOBACTAM 3.375 GM VIAL IVPB ONE ×2 (01:06→09:56)
[2019-02-20] MEDS: PIPERACILLIN/TAZOB 3.375 GM 3.375 GM in DEXTROSE 5%-WATER - 50 ML IVPB SCH ×2 (01:27→10:08)
[2019-02-20 08:44] LABS: EOS % 2.8 % (0-4.5); HEMATOCRIT 40.4 % (35.4-49); HEMOGLOBIN 14.2 GM/dL (11.7-16.9); MCH 31.5 pg (25.7-33.7); MEAN PLT VOLUME 7.1 fl (7.5-11.1); MONO % 9.6 % (3.8-10.2); NEUT % 70.6 % (42.8-82.8); PLATELET COUNT 480 K/MM3 (134-434); RBC 4.49 M/mm3 (4.00-5.60); RDW 13.1 % (11.9-15.9); WHITE BLOOD COUNT 11.4 K/mm3 (4.0-10.0)
--- NOTE | 2019-02-20 09:56 | PN ---
Progress Note, Physician History of Present Illness: patient doing well no issues drain with minimal drainage still pus - Current Medication List Current Medications: Active Medications Acetaminophen (Tylenol -) 650 mg PO Q6H PRN PRN Reason: PAIN LEVEL 6-10 Last Admin: 02/20/19 00:26 Dose: 650 mg Al Hydroxide/Mg Hydroxide (Mylanta Oral Suspension -) 30 ml PO Q6H PRN PRN Reason: DYSPEPSIA Last Admin: 02/17/19 12:51 Dose: 30 ml Piperacillin Sod/Tazobactam (Sod 3.375 gm/ Dextrose) 50 mls @ 100 mls/hr IVPB Q8H-IV RYAN; Protocol Last Admin: 02/20/19 01:27 Dose: Not Given Lactobacillus Acidophilus (Bacid -) 1 tab PO DAILY RYAN Last Admin: 02/19/19 10:33 Dose: 1 tab Ondansetron HCl (Zofran Injection) 4 mg IVPUSH Q6H PRN PRN Reason: NAUSEA AND/OR VOMITING Last Admin: 02/18/19 17:10 Dose: 4 mg Prochlorperazine Edisylate (Compazine Injection -) 10 mg IVPB Q4H PRN PRN Reason: NAUSEA AND/OR VOMITING Last Admin: 02/17/19 02:48 Dose: 10 mg Promethazine HCl (Phenergan Injection -) 12.5 mg IVPUSH Q6H PRN PRN Reason: NAUSEA-FOR RESCUE AFTER 15 MIN - Objective Vital Signs: Vital Signs Temperature 97.5 F L 02/20/19 05:00 Pulse Rate 69 02/20/19 05:00 Respiratory Rate 18 02/20/19 05:00 Blood Pressure 139/89 02/20/19 05:00 O2 Sat by Pulse Oximetry (%) 98 02/19/19 21:00 Constitutional: Yes: No Distress, Calm Cardiovascular: Yes: Regular Rate and Rhythm Respiratory: Yes: Regular, CTA Bilaterally Gastrointestinal: Yes: Normal Bowel Sounds, Soft Musculoskeletal: Yes: WNL Extremities: Yes: WNL Neurological: Yes: Alert, Oriented Psychiatric: Yes: Alert, Oriented Labs: CBC, BMP 02/20/19 08:00 02/16/19 14:17 INR, PTT INR 1.22 (0.83-1.09) H 02/14/19 15:31 Assessment/Plan patient is a 38 y/o male with no history who presents with acute perforated appendicitis. Acute perforated appendicitis nicotine dependence abd pain nausea plan patient can be switched to a combination of augmentin and cephalosporin orally rest as per the team
[2019-02-20] MEDS: LACTOBACILLUS ACIDOPHILUS 1 TABLET PO SCH (10:08)
--- NOTE | 2019-02-20 13:19 | PN ---
Progress Note (short form) - Note Progress Note: Attending Surgeon POD#6 No c/o Last Vital Signs Temp Pulse Resp BP Pulse Ox 97.5 F L 69 18 139/89 98 02/20/19 05:00 02/20/19 05:00 02/20/19 05:00 02/20/19 05:00 02/19/19 21:00 abdo-soft; LAURA seropurulent 40cc/24/hrs CBC, BMP 02/20/19 08:00 02/16/19 14:17 IMP: doing well PLAN: ID note appreciated; LAURA removed w/o incident; may be d/c'ed to office f/u next week w/ ID recommendations. Carlos Eastman MD FACS
--- NOTE | 2019-02-20 13:29 | PN ---
Teaching Attending Note Name of Resident: Adrian Dela Cruz ATTENDING PHYSICIAN STATEMENT I saw and evaluated the patient. I reviewed the resident's note and discussed the case with the resident. I agree with the resident's findings and plan as documented with exceptions below. SUBJECTIVE: patient seen and examined. continues to improve, tolerating diet well, no complaints. OBJECTIVE: Vital Signs Period Temp Pulse Resp BP Sys/Curtis Pulse Ox Last 24 Hr 97.5 F-98.1 F 65-76 18-20 139-151/73-89 98 Intake & Output 02/17/19 02/18/19 02/19/19 02/20/19 23:59 23:59 23:59 23:59 Intake Total 3350 1950 1150 200 Output Total 70 40 30 15 Balance 3280 1910 1120 185 General: lying in bed in no acute distress Neck: soft, supple HEENT: PERRL CVS:S1S2 regular Chest: CTAB, no rales or wheezing Abdomen;Soft, obese, non tender exam currently, LLQ LAURA drain, pos bowel sounds Extremities: no edema Home Medications Medication Instructions Recorded NK [No Known Home Medication] 02/14/19 Active Medications Acetaminophen (Tylenol -) 650 mg PO Q6H PRN PRN Reason: PAIN LEVEL 6-10 Last Admin: 02/20/19 00:26 Dose: 650 mg Acetaminophen (Tylenol -) 325 mg PO ONCE ONE Stop: 02/20/19 13:31 Last Admin: 02/20/19 13:20 Dose: 325 mg Al Hydroxide/Mg Hydroxide (Mylanta Oral Suspension -) 30 ml PO Q6H PRN PRN Reason: DYSPEPSIA Last Admin: 02/17/19 12:51 Dose: 30 ml Amoxicillin/Clavulanate Potassium (Augmentin - 875mg Tablet) 1 tab PO BID@0800, 1730 [facility] Stop: 02/27/19 08:01 Cefuroxime Axetil (Ceftin -) 500 mg PO BID [facility] Stop: 02/26/19 22:01 Lactobacillus Acidophilus (Bacid -) 1 tab PO DAILY [facility] Last Admin: 02/20/19 10:08 Dose: 1 tab Ondansetron HCl (Zofran Injection) 4 mg IVPUSH Q6H PRN PRN Reason: NAUSEA AND/OR VOMITING Last Admin: 02/18/19 17:10 Dose: 4 mg Oxycodone HCl (Roxicodone -) 5 mg PO ONCE ONE Stop: 02/20/19 13:31 Last Admin: 02/20/19 13:20 Dose: 5 mg Prochlorperazine Edisylate (Compazine Injection -) 10 mg IVPB Q4H PRN PRN Reason: NAUSEA AND/OR VOMITING Last Admin: 02/17/19 02:48 Dose: 10 mg Promethazine HCl (Phenergan Injection -) 12.5 mg IVPUSH Q6H PRN PRN Reason: NAUSEA-FOR RESCUE AFTER 15 MIN Laboratory Results - last 24 hr 02/20/19 08:00 WBC 11.4 H RBC 4.49 Hgb 14.2 Hct 40.4 MCV 90.0 MCH 31.5 MCHC 35.0 RDW 13.1 Plt Count 480 H MPV 7.1 L Absolute Neuts (auto) 8.0 Neutrophils % 70.6 Lymphocytes % 16.0 D Monocytes % 9.6 Eosinophils % 2.8 Basophils % 1.0 Nucleated RBC % 0 Microbiology 02/14/19 19:17 Peritoneal Fluid Gram Stain - Final 02/14/19 19:17 Peritoneal Fluid Body Fluid Culture - Final Escherichia Coli Enterococcus Faecium 02/14/19 19:17 Peritoneal Fluid Anaerobic Culture - Final NO ANAEROBES WERE ISOLATED 02/16/19 20:30 Stool Clostridioides difficile Antigen - Final 02/16/19 20:30 Stool Clostridioides difficile Toxin Assay - Final ASSESSMENT AND PLAN: 38 yom with Acute perforated appendicitis -Acute perforated appendicitis s/p Severiano Appy drain -Sepsis Plan: No further fevers, WBC improved. Surgery/ID input noted. Cultures noted. Surgery input noted, drain removed today. ID input noted, cefuroxime/augmentin,will continue for 1 more week. Pain control Ambulation/OOB, incentive spirometry DVTPPX dispo dc today with outpatient surgery follow up. Discussed with patient and nursing in detail, all questions answered.
[2019-02-20] MEDS ORDERED: ACETAMINOPHEN 325 MG TABLET (FP) PO ONE (13:30)
[2019-02-20] MEDS ORDERED: CEFUROXIME AXETIL 500 MG TABLET PO SCH (13:30)
[2019-02-20] MEDS ORDERED: oxyCODONE HCL 5 MG TABLET PO ONE (13:30)
--- NOTE | 2019-02-20 14:12 | DS ---
Physical Exam: SUBJECTIVE: Patient seen and examined OBJECTIVE: Vital Signs Period Temp Pulse Resp BP Sys/Curtis Pulse Ox Last 24 Hr 97.5 F-98.1 F 65-76 18-20 139-151/73-89 98 PHYSICAL EXAM GENERAL: The patient is awake, alert, in no acute distress. HEAD: Normal with no signs of trauma. EYES: clera anicteric, conjunctiva clear. ENT: Ears normal, nares patent, moist mucous membranes. NECK: Trachea midline, full range of motion, supple. LUNGS: Breath sounds equal, clear to auscultation bilaterally, no wheezes, no crackles, no accessory muscle use. HEART: Regular rate and rhythm, S1, S2 without murmur, rub or gallop. ABDOMEN: Soft, nondistended, tympanic to percussion, normoactive bowel sounds, no guarding, no rebound. Tenderness to palpation to lower abd. LAURA in RLQ with milky serosanguinous fluid EXTREMITIES: 2+ pulses, warm, well-perfused, no edema. NEUROLOGICAL: Normal speech, gait not observed. SKIN: Warm, dry, normal turgor, no rashes or lesions noted LABS Laboratory Results - last 24 hr 02/20/19 08:00 WBC 11.4 H RBC 4.49 Hgb 14.2 Hct 40.4 MCV 90.0 MCH 31.5 MCHC 35.0 RDW 13.1 Plt Count 480 H MPV 7.1 L Absolute Neuts (auto) 8.0 Neutrophils % 70.6 Lymphocytes % 16.0 D Monocytes % 9.6 Eosinophils % 2.8 Basophils % 1.0 Nucleated RBC % 0 HOSPITAL COURSE: 37M w/ no significant PMH presented with severe lower abdominal pain x3d w/a NV. CT A/P showing perforated appendicitis. S/P Laparoscopic Appendectomy w/ LAURA placement(Eastman, 02/14/19). Placed on post-op zosyn. Had episodes of diffuse diarrhea that prompted Cdiff testing. Cdiff neg. Intraoperative peritoneal washings grew out E coli(resistant to ampicillin, levofloxacin), Enterococcus Faecium(intermediate resistance to erythromycin, levofloxacin). Discharged home with Augmentin and Ceftin. LAURA drain was removed by Surgery on day of discharge. Date of Admission:02/14/19 Date of Discharge: 02/20/19 Discharge Summary Problems reviewed: Yes Reason For Visit: RUPTURE OF APPENDIX Condition: Improved - Instructions Diet, Activity, Other Instructions: You were admitted to the hospital for abdominal pain due to appendicitis for which you underwent a surgery. Please continue to take 1. Augmentin 875mg twice a day for 7 more days 2. Ceftin 500mg twice a day for [address] Eastman Discharge Instructions Dear DEVON PERSON, Post Operative Instructions Physical activity Resume your normal everyday activity as tolerated no heavy lifting or exercise until seen by your surgeon. You may walk unlimited amounts of and climb stairs. You may resume driving the car when you feel safe and comfortable behind the wheel. Wound care Keep area clean and dry. May shower. No baths. Diet There are no dietary restrictions. Eat healthy, high-fiber foods. Drink 6 to 8 glasses of liquid each day. This will assist in keeping your bowels are regular. Pain management You may take Tylenol or acetaminophen or Ibuprofen (for example, Motrin, Advil etc.) Any pain prescription medication ordered should be taken as prescribed for moderate to severe pain. Call Dr. Eastman for any of the following: Severe pain not relieved by medication Fever of 101 or higher Excessive bleeding or drainage on dressing Inability to urinate Call the office at [phone] for a post operative appointment in 7 - 10 days. Referrals: Carlos Eastman MD [Staff Physician] - Disposition: HOME - Home Medications Comprehensive Discharge Medication List: Ambulatory Orders Amox-Tr/K Cl [Augmentin 875-125mg Tablet -] 1 tab PO BID@0800,1730 #14 tablet Cefuroxime Axetil [Ceftin -] 500 mg PO BID #14 tablet 02/20/19 Lactobacillus Acidophilus [Bacid -] 1 tab PO DAILY #30 tab 02/20/19 - Discharge Referral Referred to [facility] No ATTENDING PHYSICIAN STATEMENT I saw and evaluated the patient. I reviewed the resident's note and discussed the case with the resident. I agree with the resident's findings and plan as documented. SUBJECTIVE: OBJECTIVE: ASSESSMENT AND PLAN:
[2019-02-20 17:09] VITALS: BP 133/83; PULSE 87; TEMP 97.3
[2019-02-20] MEDS ORDERED: AMOX TR/POT CLAV 875MG/125MG TABLETS (FP) PO SCH (17:30)
== END 2019-02-20 18:04 | disposition home or self-care (01) | DRG 341 ==
LOC: JER 14:01 → JERBED 15:46 → JER 16:40 → J8W 21:15
PROVIDERS: ADMIT Internal Medicine; ATTEND Hospitalist
PROC: 3E1M38X Irrigation of Peritoneal Cavity using Irrigating Substance, Percutaneous Approach, Diagnostic (ICD-10-PCS; 2019-02-14)
PROC: 0DTJ4ZZ Resection of Appendix, Percutaneous Endoscopic Approach (ICD-10-PCS; principal; 2019-02-14 17:00)
DX: K35.31 Acute appendicitis with localized peritonitis and gangrene, without perforation (principal); A41.89 Other specified sepsis; D72.829 Elevated white blood cell count, unspecified
CPT/HCPCS: 36415; 74176-TC; 80048; 80053; 83690; 83735; 84100; 85025; 85610; 85730; 86850; 86870; 86900; 86901; 86902; 87070; 87075; 87186; 87205; 87324; 87449; 93005; 93010; 94760; 99283-25; J0131; J7030

== ENCOUNTER 2019-02-28 11:21 | Emergency (ER) | payer BC ==
[2019-02-28 11:40] VITALS: BP 129/83; PULSE 113; TEMP 98.3; BMI 30.8
[2019-02-28] MEDS ORDERED: CYCLOBENZAPRINE HCL 10 MG TABLET (FP) PO ONE (12:00)
[2019-02-28] MEDS ORDERED: KETOROLAC TROMETHAMINE 60 MG/2 ML VIAL IM ONE (12:00)
[2019-02-28] MEDS ORDERED: KETOROLAC TROMETHAMINE 60 MG/2 ML VIAL ONE (12:01)
[2019-02-28] MEDS ORDERED: CYCLOBENZAPRINE HCL 10 MG TABLET (FP) ONE (12:01)
--- NOTE | 2019-02-28 12:13 | PDOC ---
History of Present Illness - General History Source: Patient - History of Present Illness Occurred: reports: yesterday Severity: reports: severe Pain Location: reports: back <[place] - Last Filed: 02/28/19 13:19> <Blaise Monique - Last Filed: 02/28/19 15:17> - General Chief Complaint: Pain, Acute Stated Complaint: Flank Pain Time Seen by Provider: 02/28/19 11:56 Past History - Past Medical History COPD: No - Immunization History Immunization Up to Date: No - Psycho Social/Smoking Cessation Hx Smoking History: Current every day smoker Have you smoked in the past 12 months: Yes Number of Cigarettes Smoked Daily: 24 Information on smoking cessation initiated: No Hx Alcohol Use: No Drug/Substance Use Hx: No Substance Use Type: None <Dinora Morales - Last Filed: 02/28/19 13:19> <Blaise Monique - Last Filed: 02/28/19 15:17> - Past Medical History Allergies/Adverse Reactions: Allergies Allergy/AdvReac Type Severity Reaction Status Date / Time codeine Allergy Swelling Verified 08/16/15 12:59 Home Medications: Ambulatory Orders Amox-Tr/K Cl [Augmentin 875-125mg Tablet -] 1 tab PO BID@0800,1730 #14 tablet Cefuroxime Axetil [Ceftin -] 500 mg PO BID #14 tablet 02/20/19 Lactobacillus Acidophilus [Bacid -] 1 tab PO DAILY #30 tab 02/20/19 Cyclobenzaprine HCl [Flexeril 10 mg] 10 mg PO HS #9 tablet 02/28/19 Ibuprofen [Motrin -] 600 mg PO QID #28 tablet 02/28/19 Review of Systems - Review of Systems Constitutional: No: Chills, Fever ABD/GI: No: Blood Streaked Bowels, Diarrhea, Nausea, Rectal Bleeding, Vomiting, Abdominal cramping : No: Burning, Dysuria, Discharge, Frequency, Flank Pain, Hematuria Musculoskeletal: Yes: Back Pain Neurological: No: Numbness, Tingling, Weakness <Dinora Morales Last Filed: 02/28/19 13:19> *Physical Exam - Vital Signs Last Vital Signs Temp Pulse Resp BP Pulse Ox 98.3 F 113 H 16 129/83 98 02/28/19 11:37 02/28/19 11:37 02/28/19 11:37 02/28/19 11:37 02/28/19 11:37 - Physical Exam General Appearance: Yes: Appropriately Dressed, Moderate Distress HEENT: positive: Normal Voice Neck: positive: Supple Respiratory/Chest: negative: Respiratory Distress Gastrointestinal/Abdominal: positive: Normal Bowel Sounds, Soft, Other (well maximo surgical incisions). negative: Tender, Distended, Guarding, Rebound Musculoskeletal: negative: CVA Tenderness, Vertebral Tenderness Extremity: positive: Normal Inspection Integumentary: positive: Dry, Warm Neurologic: positive: Fully Oriented, Alert, Normal Mood/Affect <Dinora Morales - Last Filed: 02/28/19 13:19> - Vital Signs Last Vital Signs Temp Pulse Resp BP Pulse Ox 98.3 F 113 H 16 129/83 98 02/28/19 11:37 02/28/19 11:37 02/28/19 11:37 02/28/19 11:37 02/28/19 11:37 <Blaise Monique - Last Filed: 02/28/19 15:17> ED Treatment Course - ADDITIONAL ORDERS Additional order review: Laboratory Results 02/28/19 12:30 Urine Color Yellow Urine Appearance Turbid Urine pH 7.0 Ur Specific [place] 1.018 Urine Protein Negative Urine Glucose (UA) Negative Urine Ketones Negative Urine Blood Negative Urine Nitrite Negative Urine Bilirubin Negative Urine Urobilinogen 0.2 Ur Leukocyte Esterase Negative - Medications Given in the ED: ED Medications Discontinued Medications Generic Name Dose Route Start Last Admin Trade Name Freq PRN Reason Stop Dose Admin Cyclobenzaprine HCl 5 mg 02/28/19 12:00 02/28/19 12:06 Flexeril - PO 02/28/19 12:01 5 mg ONCE ONE Administration Ketorolac Tromethamine 60 mg 02/28/19 12:00 02/28/19 12:06 Toradol Injection - IM 02/28/19 12:01 60 mg ONCE ONE Administration <Blaise Monique - Last Filed: 02/28/19 15:17> Medical Decision Making - Medical Decision Making 02/28/19 12:11 38 yo male, s/p surgery for ruptured appy ~2 weeks ago, here w/ L lower back pain that started shortly after opening a window yesterday. Pain sharp, 02/16, non-radiating, worse w/ movement. Took tylenol w/ no relief. No sensory changes , LE weakness, saddle anesthesia, B/B incontinence. Patient reports no worsening of his post-op abdominal pain and no acute change in bowel movements, dysuria, nausea, vomiting, fever or chills. Pt states he has had similar back pain in the past and that the only reason why he came to ED this time was to make sure that back pain is not a complication of his recent surgery. No h/o renal stone. See exam Lower back pain Recurrent M/l MSK given hx No h/o renal stone No infectious sx No neuro sxs No acute GI sxs to suspect complication of recent appy surgery -pain control -UA 02/28/19 13:02 UA wnl. Patient reports improvement in pain with meds. Rpt HR 86. Pt stable for discharge with pain control. Upon discharge, reports that he has a post-op f/u appt with Dr Eastman today. <Dinora Morales - Last Filed: 02/28/19 13:19> - Medical Decision Making 02/28/19 15:17 I reviewed the case of the mid-level practitioner and was available for consultation while in the emergency department <Blaise Monique - Last Filed: 02/28/19 15:17> Discharge - Discharge Information Problems reviewed: Yes <Dinora Morales - Last Filed: 02/28/19 13:19> <Blaise Monique - Last Filed: 02/28/19 15:17> - Discharge Information Clinical Impression/Diagnosis: Back pain Qualifiers: Back pain location: low back pain Chronicity: acute Back pain laterality: left Sciatica presence: without sciatica Qualified Code(s): M54.5 - Low back pain Condition: Improved Disposition: HOME - Additional Discharge Information Prescriptions: Cyclobenzaprine HCl [Flexeril 10 mg] 10 mg PO HS #9 tablet Ibuprofen [Motrin -] 600 mg PO QID #28 tablet - Patient Discharge Instructions Patient Printed Discharge Instructions: Low Back Pain Additional Instructions: The most common cause of back pain is muscular pain. Please take medication as prescribed and rest. If symptoms persist and/or worsen and/or you develop worsening abdominal pain, vomiting or fever, return to ED for reassessment
[2019-02-28 12:42] LABS: URINE APPEARANCE TURBID; URINE BILIRUBIN NEGATIVE (NEGATIVE); URINE COLOR YELLOW; URINE GLUCOSE (UA) NEGATIVE (NEGATIVE); URINE KETONE NEGATIVE (NEGATIVE); URINE LEUK ESTERASE NEGATIVE (NEGATIVE); URINE NITRITE NEGATIVE (NEGATIVE); URINE PROTEIN NEGATIVE (NEGATIVE); URINE UROBILINOGEN 0.2 mg/dL (0.2-1.0)
== END 2019-02-28 13:19 | disposition home or self-care (01) ==
LOC: JER 11:21
PROC: 3E0233Z Introduction of Anti-inflammatory into Muscle, Percutaneous Approach (ICD-10-PCS; principal; 2019-02-28)
DX: M54.5 Low back pain (principal); F17.210 Nicotine dependence, cigarettes, uncomplicated; Z98.890 Other specified postprocedural states; Z88.5 Allergy status to narcotic agent
CPT/HCPCS: 81003; 87086; 99282-25

== ENCOUNTER 2019-03-06 17:42 | Inpatient (IN) | payer BC ==
--- NOTE | 2019-03-06 17:51 | PDOC ---
Rapid Medical Evaluation Time Seen by Provider: 03/06/19 17:49 Medical Evaluation: Allergies Allergy/AdvReac Type Severity Reaction Status Date / Time codeine Allergy Swelling Verified 08/16/15 12:59 03/06/19 17:49 HPI: Abdominal pain and green diarrhea x4 day 5-6 episodes 4 weeks s/p appendectomy was on ABX foes not recall the name PE: No gross deficits ORDERS: Belly labs and stool cx Discharge Disposition - Diagnosis Abdominal pain, Diarrhea - Referrals - Patient Instructions - Post Discharge Activity
[2019-03-06 18:14] LABS: BASO % 1.1 % (0-2.0); EOS % 1.3 % (0-4.5); HEMATOCRIT 43.1 % (35.4-49); HEMOGLOBIN 14.8 GM/dL (11.7-16.9); LYMPH % 13.7 % (8-40); MCH 30.7 pg (25.7-33.7); MCHC 34.4 g/dl (32.0-35.9); MEAN CELL VOLUME 89.1 fl (80-96); MEAN PLT VOLUME 6.6 fl (7.5-11.1); MONO % 10.1 % (3.8-10.2); NEUT % 73.8 % (42.8-82.8); PLATELET COUNT 583 K/MM3 (134-434); RBC 4.83 M/mm3 (4.00-5.60); RDW 12.8 % (11.9-15.9); WHITE BLOOD COUNT 16.1 K/mm3 (4.0-10.0)
[2019-03-06 18:42] LABS: ALBUMIN 3.2 g/dl (3.4-5.0); BILIRUBIN,TOTAL 0.4 mg/dL (0.2-1); BLOOD UREA NITROGEN 8.9 mg/dL (7-18); CALCIUM 9.4 mg/dL (8.5-10.1); CREATININE 1.1 mg/dL (0.55-1.3); POTASSIUM 4.1 mmol/L (3.5-5.1); TOT PROT 8.4 g/dl (6.4-8.2)
--- NOTE | 2019-03-06 19:27 | PDOC ---
History of Present Illness - General Chief Complaint: Diarrhea Stated Complaint: ABDOMINAL PAIN Time Seen by Provider: 03/06/19 17:49 - History of Present Illness Initial Comments: 03/06/19 19:27 38M w/ pmh of ruptured appendix and profuse diarrhea presents with new episodes of watery, greenish diarrhea for the past 3-4 days. Had finished his abx course 2 days prior (Augmentin and Ceftin) Has only been able to eat toast and a Red Srinivasan cheese pizza today that he "surprisingly tolerated" Chills and sweats for the past few days, taking motrin every day for it. D/[place] on 02/20 fS/P Laparoscopic Appendectomy w/ LAURA placement(Eastman, 02/14/19). Placed on post-op zosyn. Had episodes of diffuse diarrhea that prompted Cdiff testing. Cdiff neg. Intraoperative peritoneal washings grew out E coli( resistant to ampicillin, levofloxacin), Enterococcus Faecium(intermediate resistance to erythromycin, levofloxacin). Discharged home with Augmentin and Ceftin. LAURA drain was removed by Surgery on day of discharge. Past History - Past Medical History Allergies/Adverse Reactions: Allergies Allergy/AdvReac Type Severity Reaction Status Date / Time codeine Allergy Swelling Verified 03/06/19 17:52 Home Medications: Ambulatory Orders Amox-Tr/K Cl [Augmentin 875-125mg Tablet -] 1 tab PO BID@0800,1730 #14 tablet Cefuroxime Axetil [Ceftin -] 500 mg PO BID #14 tablet 02/20/19 Lactobacillus Acidophilus [Bacid -] 1 tab PO DAILY #30 tab 02/20/19 Cyclobenzaprine HCl [Flexeril 10 mg] 10 mg PO HS #9 tablet 02/28/19 Ibuprofen [Motrin -] 600 mg PO QID #28 tablet 02/28/19 COPD: No - Surgical History Appendectomy: Yes - Immunization History Immunization Up to Date: No - Psycho Social/Smoking Cessation Hx Smoking History: Current every day smoker Have you smoked in the past 12 months: Yes Number of Cigarettes Smoked Daily: 24 Information on smoking cessation initiated: Yes Hx Alcohol Use: No Drug/Substance Use Hx: No Substance Use Type: None Review of Systems - Review of Systems Able to Perform ROS?: Yes Is the patient limited Mauritanian proficient: No Constitutional: No: Symptoms Reported HEENTM: No: Symptoms Reported Respiratory: No: Symptoms reported Cardiac (ROS): No: Symptoms Reported ABD/GI: Yes: See HPI : No: Symptoms Reported Musculoskeletal: No: Symptoms Reported Integumentary: No: Symptoms Reported Neurological: No: Symptoms reported All Other Systems: Reviewed and Negative *Physical Exam - Vital Signs Last Vital Signs Temp Pulse Resp BP Pulse Ox 97.9 F 110 H 20 132/95 99 03/06/19 17:52 03/06/19 17:52 03/06/19 17:52 03/06/19 17:52 03/06/19 17:52 - Physical Exam General Appearance: Yes: Nourished, Appropriately Dressed. No: Apparent Distress HEENT: positive: EOMI, CHERELLE, Normal ENT Inspection Respiratory/Chest: positive: Lungs Clear, Normal Breath Sounds. negative: Chest Tender, Respiratory Distress Cardiovascular: positive: Regular Rhythm, Regular Rate, S1, S2 Gastrointestinal/Abdominal: positive: Flat, Increased Bowel Sounds, Protuberent , Distended. negative: Tender, Guarding Musculoskeletal: positive: Normal Inspection. negative: CVA Tenderness Extremity: positive: Normal Capillary Refill, Normal Inspection, Normal Range of Motion Integumentary: positive: Normal Color, Dry, Warm Neurologic: positive: Fully Oriented, Alert, Normal Mood/Affect, Normal Response , Motor Strength 5/5 ED Treatment Course - LABORATORY CBC & Chemistry Diagram: 03/06/19 18:05 03/06/19 18:05 - ADDITIONAL ORDERS Additional order review: Laboratory Results 03/06/19 18:05 Sodium 135 L Potassium 4.1 Chloride 100 Carbon Dioxide 27 Anion Gap 9 BUN 8.9 Creatinine 1.1 Est GFR (CKD-EPI)AfAm 98.87 Est GFR (CKD-EPI)NonAf 85.31 Random Glucose 90 Calcium 9.4 Total Bilirubin 0.4 AST 15 ALT 34 Alkaline Phosphatase 78 Total Protein 8.4 H Albumin 3.2 L Lipase 126 03/06/19 18:05 RBC 4.83 MCV 89.1 MCHC 34.4 RDW 12.8 MPV 6.6 L Neutrophils % 73.8 Lymphocytes % 13.7 Monocytes % 10.1 Eosinophils % 1.3 Basophils % 1.1 Medical Decision Making - Medical Decision Making 03/06/19 21:01 38M w/ pmh of ruptured appendix and profuse diarrhea presents with new episodes of diarrhea for the past 3-[address] Eastman who did the surgery, advised to admit to medicine hospitalis. C.Diff stool panel ordered. Basic labs 03/06/19 21:01 Elevated WBC at 16 03/06/19 21:02 No UTI on UA . EKG: Sinus tach, otherwise normal EKG Admitted to Medicine under Dr. Guthrie Discharge - Discharge Information Problems reviewed: Yes Clinical Impression/Diagnosis: Abdominal pain, Diarrhea Condition: Guarded - Admission Yes - Follow up/Referral - Patient Discharge Instructions - Post Discharge Activity
--- NOTE | 2019-03-06 19:34 | PDOC ---
Attending Attestation - Resident Resident Name: Alan Arora - ED Attending Attestation I have performed the following: I have examined & evaluated the patient, The case was reviewed & discussed with the resident, I agree w/resident's findings & plan - HPI HPI: 03/06/19 20:28 see resident hpi - Physicial Exam PE: 03/06/19 20:28 agree with resident exam - Medical Decision Making 03/06/19 20:28 38-year-old male status post laparoscopic appendectomy due to ruptured appendicitis Patient is status post antibiotic course for peritonitis He is back today for recurrent diarrhea Patient does have an elevated white blood cell count Plan for repeat stool cultures and admission for IV fluids Call placed to Dr. Eastman, patient's surgeon who is aware of the visit, patient to be admitted to medical service
[2019-03-06 20:10] LABS: URINE APPEARANCE CLEAR; URINE BILIRUBIN NEGATIVE (NEGATIVE); URINE COLOR YELLOW; URINE GLUCOSE (UA) NEGATIVE (NEGATIVE); URINE KETONE NEGATIVE (NEGATIVE); URINE LEUK ESTERASE NEGATIVE (NEGATIVE); URINE NITRITE NEGATIVE (NEGATIVE); URINE PROTEIN NEGATIVE (NEGATIVE)
--- NOTE | 2019-03-06 21:16 | HP ---
Admitting History and Physical - Primary Care Physician PCP: Umberto Guthrie - Admission Chief Complaint: post abx diarrhea History of Present Illness: 38M w/ pmh of ruptured appendix and profuse diarrhea presents with new episodes of watery, greenish diarrhea for the past 3-4 days. Had finished his abx course 2 days prior (Augmentin and Ceftin) Has only been able to eat toast and a Red Srinivasan cheese pizza today that he "surprisingly tolerated" Chills and sweats for the past few days, taking motrin every day for it. D/[place] on 02/20 fS/P Laparoscopic Appendectomy w/ LAURA placement(Eastman, 02/14/19). Placed on post-op zosyn. Had episodes of diffuse diarrhea that prompted Cdiff testing. Cdiff neg. Intraoperative peritoneal washings grew out E coli( resistant to ampicillin, levofloxacin), Enterococcus Faecium(intermediate resistance to erythromycin, levofloxacin). Discharged home with Augmentin and Ceftin. LAURA drain was removed by Surgery on day of discharge. - Smoking History Smoking history: Current every day smoker Have you smoked in the past 12 months: Yes Aproximately how many cigarettes per day: 24 - Alcohol/Substance Use Hx Alcohol Use: No Home Medications - Allergies Allergies/Adverse Reactions: Allergies Allergy/AdvReac Type Severity Reaction Status Date / Time codeine Allergy Swelling Verified 03/06/19 17:52 - Home Medications Home Medications: Ambulatory Orders Amox-Tr/K Cl [Augmentin 875-125mg Tablet -] 1 tab PO BID@0800,1730 #14 tablet Cefuroxime Axetil [Ceftin -] 500 mg PO BID #14 tablet 02/20/19 Lactobacillus Acidophilus [Bacid -] 1 tab PO DAILY #30 tab 02/20/19 Cyclobenzaprine HCl [Flexeril 10 mg] 10 mg PO HS #9 tablet 02/28/19 Ibuprofen [Motrin -] 600 mg PO QID #28 tablet 02/28/19 Physical Examination Vital Signs: Vital Signs Temperature 4 F L 03/06/19 20:30 Pulse Rate 92 H 03/06/19 20:30 Respiratory Rate 22 H 03/06/19 20:30 Blood Pressure 123/83 03/06/19 20:30 O2 Sat by Pulse Oximetry (%) 97 03/06/19 20:30 Constitutional: Yes: No Distress HENT: Yes: Atraumatic Neck: Yes: Supple Cardiovascular: Yes: Regular Rate and Rhythm Respiratory: Yes: CTA Bilaterally Gastrointestinal: Yes: Normal Bowel Sounds Extremities: Yes: WNL Edema: No Neurological: Yes: Alert, Oriented Labs: CBC, BMP 03/06/19 18:05 03/06/19 18:05 Problem List - Problems (1) Diarrhea Assessment/Plan: will send stool cxs Code(s): R19.7 - DIARRHEA, UNSPECIFIED Assessment/Plan Laboratory Results - last 24 hr 03/06/19 03/06/19 03/06/19 18:05 18:05 19:40 WBC 16.1 H RBC 4.83 Hgb 14.8 Hct 43.1 MCV 89.1 MCH 30.7 MCHC 34.4 RDW 12.8 Plt Count 583 H D MPV 6.6 L Absolute Neuts (auto) 11.9 H Neutrophils % 73.8 Lymphocytes % 13.7 Monocytes % 10.1 Eosinophils % 1.3 Basophils % 1.1 Nucleated RBC % 0 Sodium 135 L Potassium 4.1 Chloride 100 Carbon Dioxide 27 Anion Gap 9 BUN 8.9 Creatinine 1.1 Est GFR (CKD-EPI)AfAm 98.87 Est GFR (CKD-EPI)NonAf 85.31 Random Glucose 90 Calcium 9.4 Total Bilirubin 0.4 AST 15 ALT 34 Alkaline Phosphatase 78 Total Protein 8.4 H Albumin 3.2 L Lipase 126 Urine Color Yellow Urine Appearance Clear Urine pH 6.0 Ur Specific [place] 1.018 Urine Protein Negative Urine Glucose (UA) Negative Urine Ketones Negative Urine Blood Negative Urine Nitrite Negative Urine Bilirubin Negative Urine Urobilinogen 1.0 Ur Leukocyte Esterase Negative Active Medications Generic Name Dose Route Start Last Admin Trade Name Freq PRN Reason Stop Dose Admin Acetaminophen 650 mg 03/06/19 21:18 03/07/19 04:33 Tylenol - PO 650 mg Q6H PRN Administration FEVER Active Medications Generic Name Dose Route Start Last Admin Trade Name Freq PRN Reason Stop Dose Admin Acetaminophen 650 mg 03/06/19 21:18 03/07/19 04:33 Tylenol - PO 650 mg Q6H PRN Administration FEVER
[2019-03-06] MEDS ORDERED: ACETAMINOPHEN 325 MG TABLET (FP) PO PRN (21:18)
[2019-03-07 08:13] LABS: EOS % 1.6 % (0-4.5); HEMATOCRIT 39.6 % (35.4-49); HEMOGLOBIN 13.7 GM/dL (11.7-16.9); LYMPH % 14.4 % (8-40); MCH 30.6 pg (25.7-33.7); MCHC 34.7 g/dl (32.0-35.9); MEAN CELL VOLUME 88.3 fl (80-96); MEAN PLT VOLUME 6.9 fl (7.5-11.1); MONO % 10.4 % (3.8-10.2); NEUT % 72.6 % (42.8-82.8); PLATELET COUNT 503 K/MM3 (134-434); RBC 4.49 M/mm3 (4.00-5.60); RDW 12.9 % (11.9-15.9); WHITE BLOOD COUNT 13.7 K/mm3 (4.0-10.0)
[2019-03-07 08:53] LABS: BILIRUBIN,TOTAL 0.4 mg/dL (0.2-1); BLOOD UREA NITROGEN 9.8 mg/dL (7-18); CREATININE 0.9 mg/dL (0.55-1.3); POTASSIUM 4.1 mmol/L (3.5-5.1); TOT PROT 7.7 g/dl (6.4-8.2)
--- NOTE | 2019-03-07 11:05 | EKG ---
Test Reason : Blood Pressure : / mmHG Vent. Rate : 101 BPM Atrial Rate : 101 BPM P-R Int : 136 ms QRS Dur : 088 ms QT Int : 340 ms P-R-T Axes : 053 050 043 degrees QTc Int : 440 ms SINUS TACHYCARDIA OTHERWISE NORMAL ECG WHEN COMPARED WITH ECG OF 14-FEB-2019 16:41, NO SIGNIFICANT CHANGE WAS FOUND Confirmed by Gianni Lozano MD ([id number]) on 03/07/2019 11:05:13 AM Referred By: Confirmed By:Gianni Lozano MD
--- NOTE | 2019-03-07 11:37 | CON.ID ---
Consult Consult Specialty:: infectious diseases Referred by:: Reason for Consultation:: abd pain,dirrhoea - History of Present Illness Chief Complaint: dirrhoea and abd pain History of Present Illness: 38M w/ pmh of ruptured appendix and profuse diarrhea presents with new episodes of watery, greenish diarrhea for the past 3-4 days. Had finished his abx course 2 days prior (Augmentin and Ceftin) Has only been able to eat toast and a Red Srinivasan cheese pizza which he had no issues Chills and sweats for the past few days, taking motrin every day for it. patient says today he is feeling much better and has had no dirrhoea and no pain in the abdomen - History Source History Provided By: Patient Limitations to Obtaining History: No Limitations - Alcohol/Substance Use Hx Alcohol Use: No - Smoking History Smoking history: Current every day smoker Have you smoked in the past 12 months: Yes Aproximately how many cigarettes per day: 24 Home Medications - Allergies Allergies/Adverse Reactions: Allergies Allergy/AdvReac Type Severity Reaction Status Date / Time codeine Allergy Swelling Verified 03/06/19 17:52 - Home Medications Home Medications: Ambulatory Orders Amox-Tr/K Cl [Augmentin 875-125mg Tablet -] 1 tab PO BID@0800,1730 #14 tablet Cefuroxime Axetil [Ceftin -] 500 mg PO BID #14 tablet 02/20/19 Lactobacillus Acidophilus [Bacid -] 1 tab PO DAILY #30 tab 02/20/19 Cyclobenzaprine HCl [Flexeril 10 mg] 10 mg PO HS #9 tablet 02/28/19 Ibuprofen [Motrin -] 600 mg PO QID #28 tablet 02/28/19 Review of Systems - Review of Systems Constitutional: reports: Chills Eyes: reports: No Symptoms HENT: reports: No Symptoms Neck: reports: No Symptoms Cardiovascular: reports: No Symptoms Respiratory: reports: No Symptoms Gastrointestinal: reports: Abdominal Pain, Diarrhea Genitourinary: reports: No Symptoms Musculoskeletal: reports: No Symptoms Integumentary: reports: No Symptoms Neurological: reports: No Symptoms Endocrine: reports: No Symptoms Hematology/Lymphatic: reports: No Symptoms Psychiatric: reports: No Symptoms Physical Exam Vital Signs: Vital Signs Temperature 4 F L 03/06/19 20:30 Pulse Rate 100 H 10/29/19 02:48 Respiratory Rate 18 03/07/19 02:48 Blood Pressure 120/74 03/07/19 02:48 O2 Sat by Pulse Oximetry (%) 97 03/07/19 02:48 Constitutional: Yes: No Distress, Calm Eyes: Yes: Conjunctiva Clear HENT: Yes: Atraumatic, Normocephalic Neck: Yes: Supple, Trachea Midline Cardiovascular: Yes: S1, S2 Respiratory: Yes: Regular, CTA Bilaterally Gastrointestinal: Yes: Normal Bowel Sounds, Soft Musculoskeletal: Yes: WNL Extremities: Yes: WNL Neurological: Yes: Alert, Oriented Psychiatric: Yes: Alert Labs: CBC, BMP 03/07/19 06:35 03/07/19 06:35 Assessment/Plan patient coming for dirrhoea and abd pain post op patient with leukocytosis' i will hold of on starting any abx will see how the patient does rest as per the team
--- NOTE | 2019-03-07 18:08 | PN ---
Progress Note, Physician History of Present Illness: doing well no more diarrhea - Current Medication List Current Medications: Active Medications Acetaminophen (Tylenol -) 650 mg PO Q6H PRN PRN Reason: FEVER Last Admin: 03/07/19 04:33 Dose: 650 mg - Objective Vital Signs: Vital Signs Temperature 98.3 F 03/07/19 17:06 Pulse Rate 78 03/07/19 17:06 Respiratory Rate 20 03/07/19 17:06 Blood Pressure 116/63 03/07/19 17:06 O2 Sat by Pulse Oximetry (%) 97 03/07/19 09:00 Constitutional: Yes: No Distress HENT: Yes: Atraumatic Neck: Yes: Supple Cardiovascular: Yes: Regular Rate and Rhythm Respiratory: Yes: CTA Bilaterally Gastrointestinal: Yes: Normal Bowel Sounds Extremities: Yes: WNL Neurological: Yes: Alert, Oriented Labs: CBC, BMP 03/07/19 06:35 03/07/19 06:35 Problem List - Problems (1) Diarrhea Assessment/Plan: resolved advance diet fu cbc Code(s): R19.7 - DIARRHEA, UNSPECIFIED
[2019-03-08] MEDS ORDERED: ACETAMINOPHEN 325 MG TABLET (FP) PO ONE (02:36)
--- NOTE | 2019-03-08 11:23 | PN ---
Progress Note, Physician History of Present Illness: stable no new issues - Current Medication List Current Medications: Active Medications Acetaminophen (Tylenol -) 650 mg PO Q6H PRN PRN Reason: FEVER Last Admin: 03/07/19 04:33 Dose: 650 mg - Objective Vital Signs: Vital Signs Temperature 98.5 F 03/08/19 06:53 Pulse Rate 71 03/08/19 06:53 Respiratory Rate 20 03/08/19 06:53 Blood Pressure 95/61 03/08/19 06:53 O2 Sat by Pulse Oximetry (%) 96 03/07/19 21:00 Constitutional: Yes: No Distress, Calm Cardiovascular: Yes: S1, S2 Respiratory: Yes: Regular, CTA Bilaterally Gastrointestinal: Yes: Soft Musculoskeletal: Yes: WNL Extremities: Yes: WNL Neurological: Yes: Alert, Oriented Psychiatric: Yes: Alert, Oriented Labs: CBC, BMP 03/07/19 06:35 03/07/19 06:35 Assessment/Plan continue current mgmt will check cbc tomorrow
[2019-03-08 14:53] VITALS: BMI 30.5
--- NOTE | 2019-03-08 15:20 | PN ---
Progress Note, Physician - Current Medication List Current Medications: Active Medications Acetaminophen (Tylenol -) 650 mg PO Q6H PRN PRN Reason: FEVER Last Admin: 03/07/19 04:33 Dose: 650 mg - Objective Vital Signs: Vital Signs Temperature 98.5 F 03/08/19 06:53 Pulse Rate 71 03/08/19 06:53 Respiratory Rate 20 03/08/19 06:53 Blood Pressure 95/61 03/08/19 06:53 O2 Sat by Pulse Oximetry (%) 96 03/08/19 09:00 Constitutional: Yes: No Distress HENT: Yes: Atraumatic Neck: Yes: Supple Cardiovascular: Yes: Regular Rate and Rhythm Respiratory: Yes: CTA Bilaterally Gastrointestinal: Yes: Normal Bowel Sounds Neurological: Yes: Alert, Oriented Labs: CBC, BMP 03/07/19 06:35 03/07/19 06:35 Problem List - Problems (1) Diarrhea Assessment/Plan: regular diet check cbc if wnl then dc home Code(s): R19.7 - DIARRHEA, UNSPECIFIED
[2019-03-08 16:07] LABS: EOS % 2.4 % (0-4.5); HEMATOCRIT 42.2 % (35.4-49); HEMOGLOBIN 14.2 GM/dL (11.7-16.9); LYMPH % 15.4 % (8-40); MCH 29.8 pg (25.7-33.7); MCHC 33.7 g/dl (32.0-35.9); MEAN CELL VOLUME 88.3 fl (80-96); MEAN PLT VOLUME 6.9 fl (7.5-11.1); MONO % 8.8 % (3.8-10.2); NEUT % 72.4 % (42.8-82.8); PLATELET COUNT 538 K/MM3 (134-434); RBC 4.79 M/mm3 (4.00-5.60); RDW 12.7 % (11.9-15.9); WHITE BLOOD COUNT 13.6 K/mm3 (4.0-10.0)
[2019-03-08 17:12] VITALS: BP 126/73; PULSE 94; TEMP 99.5
--- NOTE | 2019-03-08 18:31 | DS ---
Physical Examination Vital Signs: Vital Signs Temperature 99.5 F 03/08/19 17:11 Pulse Rate 94 H 03/08/19 17:11 Respiratory Rate 20 03/08/19 17:11 Blood Pressure 126/73 03/08/19 17:11 O2 Sat by Pulse Oximetry (%) 96 03/08/19 09:00 Labs: CBC, BMP 03/08/19 15:34 03/07/19 06:35 Discharge Summary Problems reviewed: Yes Reason For Visit: ABDOMINAL PAIN/DIARRHEA Condition: Guarded - Instructions Referrals: Umberto Guthrie MD [Primary Care Provider] - Disposition: AGAINST MEDICAL ADVICE - Home Medications Comprehensive Discharge Medication List: Ambulatory Orders Amox-Tr/K Cl [Augmentin 875-125mg Tablet -] 1 tab PO BID@0800,1730 #14 tablet Cefuroxime Axetil [Ceftin -] 500 mg PO BID #14 tablet 02/20/19 Lactobacillus Acidophilus [Bacid -] 1 tab PO DAILY #30 tab 02/20/19 Cyclobenzaprine HCl [Flexeril 10 mg] 10 mg PO HS #9 tablet 02/28/19 Ibuprofen [Motrin -] 600 mg PO QID #28 tablet 02/28/19 AMA
== END 2019-03-08 18:22 | disposition left against medical advice (07) | DRG 392 ==
LOC: JER 17:42 → JERBED 20:00 → J8W 03-07 04:14
PROVIDERS: ADMIT Internal Medicine; ATTEND Internal Medicine
DX: R19.7 Diarrhea, unspecified (principal); F17.210 Nicotine dependence, cigarettes, uncomplicated; R10.9 Unspecified abdominal pain; D72.829 Elevated white blood cell count, unspecified
CPT/HCPCS: 36415; 80053; 81003; 83690; 85025; 87045; 87046; 87205; 87324; 87449; 93005; 93010; 99284-25

== ENCOUNTER 2022-06-20 17:14 | Emergency (ER) | payer BC ==
[2022-06-20 17:32] VITALS: BP 157/82; PULSE 95; RESP 18; TEMP 97.4; BMI 36.1
[2022-06-20] MEDS ORDERED: DEXAMETHASONE SOD PHOSPHATE 10 MG/1 ML VIAL IVPUSH ONE (18:26)
[2022-06-20] MEDS ORDERED: LIDOCAINE 5% TOPICAL PATCH TP ONE (18:26)
[2022-06-20] MEDS ORDERED: KETOROLAC TROMETHAMINE 30 MG/1 ML VIAL IVPUSH ONE (18:26)
[2022-06-20] MEDS ORDERED: LIDOCAINE 5% TOPICAL PATCH ONE (18:32)
[2022-06-20] MEDS ORDERED: DEXAMETHASONE SOD PHOSPHATE 10 MG/1 ML VIAL ONE (18:32)
[2022-06-20] MEDS ORDERED: KETOROLAC TROMETHAMINE 30 MG/1 ML VIAL ONE (18:32)
[2022-06-21] MEDS ORDERED: LIDOCAINE PATCH REMOVAL MC SCH (06:00)
== END 2022-06-20 21:33 | disposition home or self-care (01) ==
LOC: JERFT 17:14 → JER 17:14 → JERFT 21:33
PROC: 3E033GC Introduction of Other Therapeutic Substance into Peripheral Vein, Percutaneous Approach (ICD-10-PCS; principal; 2022-06-20)
DX: M54.16 Radiculopathy, lumbar region (principal)
CPT/HCPCS: 72131-TC; 99285-25; J1100